=== PATIENT | female | born 1930 | race Caucasian/White ===

== ENCOUNTER → 2016-07-10 | Outpatient (CLI) | payer MEDICARE, OTHER | LOC: MW.CHFP 14:52 | PROVIDERS: ATTEND Physician Assistant | DX: R35.0 Frequency of micturition (principal); N39.0 Urinary tract infection, site not specified | CPT/HCPCS: 81001; 87086; 87088; 87186; G0463 ==

== ENCOUNTER 2017-02-24 09:34 | Emergency (ER) | payer MEDICARE, OTHER ==
[2017-02-24] MEDS ORDERED: Sodium Chloride 0.9% 2.5 ML Syringe FLUSH PRN (09:37)
[2017-02-24] MEDS ORDERED: Sodium Chloride 0.9% 10 ML Syringe FLUSH PRN (09:37)
--- NOTE | 2017-02-24 09:40 | EDM.PDOC ---
ED HPI GENERAL MEDICAL PROBLEM - General Stated Complaint: AMBULANCE Time Seen by Provider: 02/24/17 09:35 - History of Present Illness INITIAL COMMENTS - FREE TEXT/NARRATIVE: HISTORY AND PHYSICAL: History of present illness: Patient is an 87-year-old white female presents with a concern of generalized weakness she lives in assisted living and her complaints on arrival include generalized weakness along with some mild shortness of breath abdominal pain is no reported fever chills nausea vomiting she does have an advanced directive of DNR due to advanced age she is somewhat a poor historian. She denies chest pain on arrival is noted to have oxygen saturation in the high 80s she is not on supplemental oxygen at home Review of systems: As per history of present illness and below otherwise all systems reviewed and negative. Past medical history: As per history of present illness and as reviewed below otherwise noncontributory. Surgical history: As per history of present illness and as reviewed below otherwise noncontributory. Social history: No reported history of drug or alcohol abuse. Family history: As per history of present illness and as reviewed below otherwise noncontributory. Physical exam: HEENT: Atraumatic, normocephalic, pupils reactive, negative for conjunctival pallor or scleral icterus, mucous membranes moist, throat clear, neck supple, nontender, trachea midline. Lungs: Coarse, breath sounds equal bilaterally, chest nontender. Heart: S1S2, regular, negative for clicks, rubs, or JVD. Abdomen: Soft, protuberant with nonlocalized tenderness across her lower abdomen. Negative for masses or hepatosplenomegaly. Negative for costovertebral tenderness. Pelvis: Stable nontender. Genitourinary: Deferred. Rectal: Deferred. Extremities: Atraumatic, negative for cords or calf pain. Neurovascular unremarkable. Neuro: Awake, alert, follows commands moves all extremities limited but grossly nonfocal exam Diagnostics: CBC CMP PT/INR lipase troponin UA urine culture blood culture 2 lactic acid chest x-ray EKG CT abdomen and pelvis influenza screen Therapeutics: IV O2 monitor Impression: #1 generalized weakness #2 hypoxemia #3 abdominal pain #4 DNR Patient received 40 minutes of critical care time exclusive of procedures Definitive disposition and diagnosis as appropriate pending reevaluation and review of above. Abdominal Pain Score (Numeric/FACES): 3 - Related Data Allergies Allergy/AdvReac Type Severity Reaction Status Date / Time No Known Allergies Allergy Verified 02/24/17 09:39 ED ROS GENERAL - Review of Systems Review Of Systems: ROS reveals no pertinent complaints other than HPI. ED EXAM, GENERAL - Physical Exam Exam: See Below (The dictation) Course - Vital Signs Text/Narrative:: Patient CT demonstrates large hiatal hernia large pneumoperitoneum cecal volvulus possible pneumatosis normal saline 1 L was ordered as a bolus second IV line was initiated Flagyl was added to the already ordered Levaquin surgical consult was obtained in the emergency department lengthy discussion with family who is making determinations as to treatment options and likely transfer. Last Recorded V/S: Last Vital Signs Temp 36.1 C 02/24/17 11:05 Pulse 92 02/24/17 11:05 Resp 14 02/24/17 11:05 BP 104/37 L 02/24/17 11:05 Pulse Ox 93 L 02/24/17 11:05 - Orders/Labs/Meds Orders: Active Orders 24 hr Category Date Time Status Cardiac Monitoring [RC] . DIRECTED Care 02/24/17 09:36 Active EKG Documentation Completion [RC] STAT Care 02/24/17 09:36 Active Oxygen Therapy, ED [RC] ASDIRECTED Care 02/24/17 09:36 Active Pulse Oximetry [RC] ASDIRECTED Care 02/24/17 09:36 Active Abdomen Pelvis wo Cont [CT] Stat Exams 02/24/17 09:36 Taken Chest 1V Frontal [CR] Stat Exams 02/24/17 09:36 Taken Chest wo Cont [CT] Routine Exams 02/24/17 10:36 Taken BLOOD GAS ARTERIAL [BG] Stat Lab 02/24/17 09:36 Ordered CULTURE BLOOD [BC] Stat Lab 02/24/17 10:00 Received CULTURE BLOOD [BC] Stat Lab 02/24/17 10:20 Results CULTURE URINE [RM] Stat Lab 02/24/17 09:36 Uncollected INFLUENZA A+B AG SCREEN [RM] Stat Lab 02/24/17 09:37 Uncollected UA W/MICROSCOPIC [URIN] Stat Lab 02/24/17 09:36 Uncollected Levofloxacin/Dextrose 5%-Water [Levaquin in D5W 750 MG/ Med 02/24/17 10:51 Active 150 ML] 750 mg Premix Bag 1 bag IV ONETIME Sodium Chloride 0.9% [Normal Saline] 1,000 ml Med 02/24/17 09:45 Active IV STAT Sodium Chloride 0.9% [Saline Flush] Med 02/24/17 09:37 Active 10 ml FLUSH ASDIRECTED PRN Sodium Chloride 0.9% [Saline Flush] Med 02/24/17 09:37 Active 2.5 ml FLUSH ASDIRECTED PRN metroNIDAZOLE/Normal Saline [Flagyl 500 MG in NS 100 ML Med 02/24/17 11:36 Active ] 500 mg Premix Bag 1 bag IV ONETIME Blood Culture x2 Reflex Set [OM.PC] Stat Oth 02/24/17 09:36 Ordered Saline Lock Insert [OM.PC] Stat Oth 02/24/17 09:36 Ordered Medication Orders Sodium Chloride (Normal Saline) 1,000 mls @ 125 mls/hr IV STAT [facility] Last Admin: 02/24/17 11:15 Dose: 125 mls/hr Levofloxacin/Dextrose 750 mg/ (Premix) 150 mls @ 100 mls/hr IV ONETIME ONE Stop: 02/24/17 12:20 Last Admin: 02/24/17 11:15 Dose: 100 mls/hr Metronidazole 500 mg/ Premix 100 mls @ 100 mls/hr IV ONETIME ONE Stop: 02/24/17 12:35 Sodium Chloride (Saline Flush) 10 ml FLUSH ASDIRECTED PRN PRN Reason: Keep Vein Open Sodium Chloride (Saline Flush) 2.5 ml FLUSH ASDIRECTED PRN PRN Reason: Keep Vein Open Labs: Laboratory Tests 02/24/17 02/24/17 02/24/17 Range/Units 10:00 10:00 10:00 WBC 10.57 (4.0-11.0) K/uL RBC 4.86 (4.30-5.90) M/uL Hgb 15.2 (12.0-16.0) g/dL Hct 44.1 (36.0-46.0) % MCV 90.7 (80.0-98.0) fL MCH 31.3 (27.0-32.0) pg MCHC 34.5 (31.0-37.0) g/dL RDW Std Deviation 45.9 (28.0-62.0) fl RDW Coeff of Yoselin 14 (11.0-15.0) % Plt Count 201 (150-400) K/uL MPV 10.00 (7.40-12.00) fL Neut % (Auto) 84.7 H (48.0-80.0) % Lymph % (Auto) 7.9 L (16.0-40.0) % Worth % (Auto) 7.3 (0.0-15.0) % Eos % (Auto) 0.0 (0.0-7.0) % Baso % (Auto) 0.1 (0.0-1.5) % Neut # (Auto) 9.0 H (1.4-5.7) K/uL Lymph # (Auto) 0.8 (0.6-2.4) K/uL Worth # (Auto) 0.8 (0.0-0.8) K/uL Eos # (Auto) 0.0 (0.0-0.7) K/uL Baso # (Auto) 0.0 (0.0-0.1) K/uL Nucleated RBC % 0.0 /100WBC Nucleated RBCs # 0 K/uL INR 1.06 (0.86-1.11) Lactate (0.20-2.00) mmol/L Sodium 138 (136-146) mmol/L Potassium 5.3 H (3.5-5.1) mmol/L Chloride 106 (98-110) mmol/L Carbon Dioxide 20 L (21-31) mmol/L BUN 67 H (6.0-23.0) mg/dL Creatinine 2.1 H (0.6-1.5) mg/dL Est Cr Clr Drug Dosing TNP Estimated GFR (MDRD) 22.2 ml/min Glucose 156 H (60-110) mg/dL Calcium 11.2 H (8.8-10.8) mg/dL Total Bilirubin 1.7 H (0.1-1.5) mg/dL AST 18 (5-40) IU/L ALT 13 (8-54) IU/L Alkaline Phosphatase 65 (40-150) Troponin I < 0.10 (0.0-0.29) NG/ML B-Natriuretic Peptide (<100) PG/ML Total Protein 7.4 (6.0-8.0) g/dL Albumin 3.5 (3.4-4.8) g/dL Globulin 3.9 H (2.0-3.5) g/dL Albumin/Globulin Ratio 0.9 L (1.3-2.8) Lipase < 9 (7-80) U/L 02/24/17 02/24/17 Range/Units 10:00 10:00 WBC (4.0-11.0) K/uL RBC (4.30-5.90) M/uL Hgb (12.0-16.0) g/dL Hct (36.0-46.0) % MCV (80.0-98.0) fL MCH (27.0-32.0) pg MCHC (31.0-37.0) g/dL RDW Std Deviation (28.0-62.0) fl RDW Coeff of Yoselin (11.0-15.0) % Plt Count (150-400) K/uL MPV (7.40-12.00) fL Neut % (Auto) (48.0-80.0) % Lymph % (Auto) (16.0-40.0) % Worth % (Auto) (0.0-15.0) % Eos % (Auto) (0.0-7.0) % Baso % (Auto) (0.0-1.5) % Neut # (Auto) (1.4-5.7) K/uL Lymph # (Auto) (0.6-2.4) K/uL Worth # (Auto) (0.0-0.8) K/uL Eos # (Auto) (0.0-0.7) K/uL Baso # (Auto) (0.0-0.1) K/uL Nucleated RBC % /100WBC Nucleated RBCs # K/uL INR (0.86-1.11) Lactate 2.1 H (0.20-2.00) mmol/L Sodium (136-146) mmol/L Potassium (3.5-5.1) mmol/L Chloride (98-110) mmol/L Carbon Dioxide (21-31) mmol/L BUN (6.0-23.0) mg/dL Creatinine (0.6-1.5) mg/dL Est Cr Clr Drug Dosing Estimated GFR (MDRD) ml/min Glucose (60-110) mg/dL Calcium (8.8-10.8) mg/dL Total Bilirubin (0.1-1.5) mg/dL AST (5-40) IU/L ALT (8-54) IU/L Alkaline Phosphatase (40-150) Troponin I (0.0-0.29) NG/ML B-Natriuretic Peptide 352 H (<100) PG/ML Total Protein (6.0-8.0) g/dL Albumin (3.4-4.8) g/dL Globulin (2.0-3.5) g/dL Albumin/Globulin Ratio (1.3-2.8) Lipase (7-80) U/L Meds: Medications Generic Name Dose Route Start Last Admin Trade Name Freq PRN Reason Stop Dose Admin Sodium Chloride 1,000 mls @ 125 mls/hr 02/24/17 09:45 02/24/17 11:15 Normal Saline IV 125 mls/hr STAT [facility]ES Administration Levofloxacin/Dextrose 750 mg/ 150 mls @ 100 mls/hr 02/24/17 10:51 02/24/17 11 :15 Premix IV 02/24/17 12:20 100 mls/hr ONETIME ONE Administration Metronidazole 500 mg/ Premix 100 mls @ 100 mls/hr 02/24/17 11:36 IV 02/24/17 12:35 ONETIME ONE Sodium Chloride 10 ml 02/24/17 09:37 Saline Flush FLUSH ASDIRECTED PRN Keep Vein Open Sodium Chloride 2.5 ml 02/24/17 09:37 Saline Flush FLUSH ASDIRECTED PRN Keep Vein Open Departure - Departure Time of Disposition: 12:07 Disposition: DC/Tfer to Acute Hospital 02 Condition: Critical Clinical Impression: Cecal volvulus, Pneumoperitoneum - Discharge Information Referrals: PCP,None [Primary Care Provider] - - My Orders Last 24 Hours: My Active Orders 02/24/17 09:36 Cardiac Monitoring [RC] . DIRECTED EKG Documentation Completion [RC] STAT Oxygen Therapy, ED [RC] ASDIRECTED Pulse Oximetry [RC] ASDIRECTED Abdomen Pelvis wo Cont [CT] Stat Chest 1V Frontal [CR] Stat BLOOD GAS ARTERIAL [BG] Stat CULTURE URINE [RM] Stat UA W/MICROSCOPIC [URIN] Stat Blood Culture x2 Reflex Set [OM.PC] Stat Saline Lock Insert [OM.PC] Stat 02/24/17 09:37 INFLUENZA A+B AG SCREEN [RM] Stat Sodium Chloride 0.9% [Saline Flush] 10 ml FLUSH ASDIRECTED PRN Sodium Chloride 0.9% [Saline Flush] 2.5 ml FLUSH ASDIRECTED PRN 02/24/17 09:45 Sodium Chloride 0.9% [Normal Saline] 1,000 ml IV STAT 02/24/17 10:00 CULTURE BLOOD [BC] Stat 02/24/17 10:20 CULTURE BLOOD [BC] Stat 02/24/17 10:36 Chest wo Cont [CT] Routine 02/24/17 10:51 Levofloxacin/Dextrose 5%-Water [Levaquin in D5W 750 MG/150 ML] 750 mg Premix Bag 1 bag IV ONETIME 02/24/17 11:36 metroNIDAZOLE/Normal Saline [Flagyl 500 MG in NS 100 ML] 500 mg Premix Bag 1 bag IV ONETIME - Assessment/Plan Last 24 Hours: My Active Orders 02/24/17 09:36 Cardiac Monitoring [RC] . DIRECTED EKG Documentation Completion [RC] STAT Oxygen Therapy, ED [RC] ASDIRECTED Pulse Oximetry [RC] ASDIRECTED Abdomen Pelvis wo Cont [CT] Stat Chest 1V Frontal [CR] Stat BLOOD GAS ARTERIAL [BG] Stat CULTURE URINE [RM] Stat UA W/MICROSCOPIC [URIN] Stat Blood Culture x2 Reflex Set [OM.PC] Stat Saline Lock Insert [OM.PC] Stat 02/24/17 09:37 INFLUENZA A+B AG SCREEN [RM] Stat Sodium Chloride 0.9% [Saline Flush] 10 ml FLUSH ASDIRECTED PRN Sodium Chloride 0.9% [Saline Flush] 2.5 ml FLUSH ASDIRECTED PRN 02/24/17 09:45 Sodium Chloride 0.9% [Normal Saline] 1,000 ml IV STAT 02/24/17 10:00 CULTURE BLOOD [BC] Stat 02/24/17 10:20 CULTURE BLOOD [BC] Stat 02/24/17 10:36 Chest wo Cont [CT] Routine 02/24/17 10:51 Levofloxacin/Dextrose 5%-Water [Levaquin in D5W 750 MG/150 ML] 750 mg Premix Bag 1 bag IV ONETIME 02/24/17 11:36 metroNIDAZOLE/Normal Saline [Flagyl 500 MG in NS 100 ML] 500 mg Premix Bag 1 bag IV ONETIME
[2017-02-24] MEDS ORDERED: Sodium Chloride 0.9% 1,000 ML IV SCH (09:45)
[2017-02-24 10:37] LABS: CHLORIDE,CL 106 mmol/L (98-110); SODIUM,NA 138 mmol/L (136-146)
[2017-02-24] MEDS ORDERED: Levofloxacin/Dextrose 5%-Water 750 MG in Premix Bag 1 BAG IV ONE (10:51)
[2017-02-24] MEDS ORDERED: metroNIDAZOLE/Normal Saline 500 MG in Premix Bag 1 BAG IV ONE (11:36)
--- NOTE | 2017-02-24 22:27 | CONS ---
DATE OF CONSULTATION: 02/24/2017 DATE OF : 1930 PRIMARY CARE PHYSICIAN: None PCP This is consult from ER Dr. Zhu. CONCERNING QUESTION: Abdominal pain. HISTORY OF PRESENT ILLNESS: The patient is an 87-year-old lady complaining of 48-hour history of acute onset of abdominal pain, nausea, vomiting, and did not get better at home, seek help in the emergency room today. Workup included CAT scan shows a large amount of pneumoperitoneum and large hiatal hernia with entire stomach in the left chest and cecal volvulus with mesenteric stranding. Surgery was then consulted. Currently, the patient denied any pain and also when transferred between bed, the patient also denied any pain. PAST MEDICAL HISTORY: Significant for significant heart disease with cardiac bypass surgery in the past, an MRI 6 years ago, and the patient is taking baby aspirin. ALLERGIES: Please refer to nursing for details. MEDICATIONS: Please refer to nursing for details. PAST SURGICAL HISTORY: Normal vaginal delivery x2, coronary artery bypass graft surgery 6 years ago. PHYSICAL EXAMINATION: GENERAL: A very ill-appearance lady, but smiled to the doctor, and alert and awake in no acute distress. HEENT: Normocephalic, atraumatic. LUNGS: Clear to auscultation. HEART: Regular rate and rhythm. ABDOMEN: Distended, tympanic, nontender, and decreased bowel sounds. IMPRESSION: The patient has a large hiatal hernia with the stomach in the chest and cecal volvulus, possible perforated, with significant cardiac comorbidity. The patient would better surface benefit to transfer to a [facility], where they have Cardiothoracic Surgeon available in the event of any complication or if the hiatal hernia in the chest cannot be reduced, the patient may also need the help with the Cardiothoracic Surgeon to reduce the stomach and the patient's family asked a lot of significant question and all questions answered and the patient's family concurs with management, and the patient is on the way transfer to a [facility] on emergent basis. Plan also has been discussed with Dr. Zhu, the ER provider, and proceed as planned. As always, thank you for the kind referral. ANYA / ROB /[id number]
--- NOTE | 2017-02-26 19:25 | CR ---
EXAM DATE: 02/24/17 PATIENT'S AGE: 87 Patient: ZEENAT MCFADDEN Facility: [place], [place] Site . Site : 1930 Study: XRay Chest [id number]/31/[id number] 10:37:35 AM Ordering Physician: Doctor Rosario Final Report: Indication: Shortness of breath. Comparison: None. Findings: The bones are diffusely demineralized and there are changes of a median sternotomy. Air-filled dilated loops of colon/stomach are noted in the chest with compressive atelectasis of both lower lungs. Probable moderate-sized left pleural effusion. The pulmonary vasculature and heart are silhouetted out by the bowel process in the chest. Impression: Extremely large hiatus hernia or marked elevation of hemidiaphragms or, possible diaphragmatic hernia. Comparison with previous exams would be helpful in evaluating the acute nature of today`s findings. Consider followup PA and lateral chest. Dictated by Olivia Johnson MD @ Feb 24 2017 10:39AM (Electronic Signature) Report Signed by Proxy. [facility]
--- NOTE | 2017-02-26 19:27 | CT ---
EXAM DATE: 02/24/17 PATIENT'S AGE: 87 Patient: ZEENAT MCFADDEN Facility: [place], [place] Site . Site : 1930 Study: CT Abdomen/Pelvis [id number]/31/[id number] 11:03:59 AM Ordering Physician: Doctor Rosario Final Report: Indication: Abdominal pain Technique: Noncontrast CT abdomen and pelvis with coronal side reformatted images obtained Comparison: No comparison studies are available. Findings: Large hiatal hernia with the stomach in the left lower chest. Large amount of pneumoperitoneum. There is a cecal volvulus with the cecum fluid-filled and mildly distended located in the mid and left abdomen. Possible pneumatosis within the cecal wall. Cecum is twisted there is twisted leg mesenteric swirling and stranding seen in the right lower quadrant. On images 76 through 98. Small amount of free fluid in the abdomen and pelvis. There is extensive sigmoid diverticulosis. Urinary bladder is unremarkable the fact containing inguinal hernias with normal fluid in the right inguinal canal. Dense atherosclerotic calcification of the abdominal aorta which is ectatic measuring up to 2.7 cm. Liver pancreas appears unremarkable. Large right renal cyst. No hydronephrosis kidneys are otherwise unremarkable. Impression: 1. Cecal volvulus with mesenteric stranding and fluid. Possible pneumatosis within the cecal wall. There is a large amount of pneumoperitoneum . Results called to the ER physician on 02/24/2017 at 11.40am. Please note that all CT scans at this facility use dose modulation, iterative reconstruction, and/or weight-based dosing when appropriate to reduce radiation dose to as low as reasonably achievable. Dictated by Rose Castillo MD @ Feb 24 2017 11:13AM (Electronic Signature) Report Signed by Proxy. [facility]
--- NOTE | 2017-02-26 19:28 | CT ---
EXAM DATE: 02/24/17 PATIENT'S AGE: 87 Patient: ZEENAT MCFADDEN Facility: [place], [place] Site . Site : 1930 Study: CT Chest [id number]/31/2017 11:04:42 AM Ordering Physician: Marko Randall Final Report: Indication: Shortness of breath abdominal pain. Technique: Noncontrast chest CT scan with coronal and sagittal reformat images obtained Comparison: No comparison studies are available. Findings: Median sternotomy. Dense coronary artery calcification. Heart size normal. Large hiatal hernia with the entire stomach in the left chest. No central endobronchial lesion. Left upper lobe, left lower lobe and right lower lobe atelectasis/consolidation. Large amount of pneumoperitoneum. Impression: 1. A large hiatal hernia with the entire stomach in the left chest . Right lower lobe/left upper and left lower lobe atelectasis/consolidation. 2. Large amount of pneumoperitoneum. Please note that all CT scans at this facility use dose modulation, iterative reconstruction, and/or weight-based dosing when appropriate to reduce radiation dose to as low as reasonably achievable. Dictated by Rose Castillo MD @ Feb 24 2017 11:40AM (Electronic Signature) Report Signed by Proxy. [facility]
== END 2017-02-24 12:30 ==
LOC: MW.ED 09:34
DX: K56.2 Volvulus (principal); K66.8 Other specified disorders of peritoneum; R09.02 Hypoxemia; Z66 Do not resuscitate
CPT/HCPCS: 36415; 71010; 71250; 74176; 80053; 83605; 83690; 83880; 84484; 85025; 85610; 87040; 93005; 96365; 96368; 99285; J1956; J7040; 99284

== ENCOUNTER 2017-05-12 10:17 | Inpatient (IN) | payer MEDICARE, OTHER ==
[2017-05-12] MEDS ORDERED: Sodium Chloride 0.9% 2.5 ML Syringe FLUSH PRN (10:24)
[2017-05-12] MEDS ORDERED: Sodium Chloride 0.9% 10 ML Syringe FLUSH PRN (10:24)
--- NOTE | 2017-05-12 10:27 | EDM.PDOC ---
ED HPI GENERAL MEDICAL PROBLEM - General Chief Complaint: General Stated Complaint: FALL Time Seen by Provider: 05/12/17 10:27 Source of Information: Reports: Patient History Limitations: Reports: No Limitations - History of Present Illness INITIAL COMMENTS - FREE TEXT/NARRATIVE: HISTORY AND PHYSICAL: []87-year-old female per EMS after fall, fall was not witnessed History of Present Illness: []Patient is at [facility]. She was seen a week ago with previous fall. Patient was here one month ago with compression fractures from fall. She is pleasantly confused not remembering what happened is that she must of tripped. family at bedside ([id number]. Review of Systems: As per history of present illness and below otherwise all systems reviewed and negative. Past medical history: As per history of present illness and as reviewed below otherwise noncontributory. Surgical history: As per history of present illness and as reviewed below otherwise noncontributory. Social history: No reported history of drug or alcohol abuse. Family history: As per history of present illness and as reviewed below otherwise noncontributory. Physical exam: Alert and somewhat confused/ dementia. Bruising in various stages to her face or hands arms. She does answer questions when asked. HEENT: Atraumatic, normocehpalic, pupils reactive, negative for conjunctival pallor or scleral icterus, mucous membranes moist, throat clear, neck supple, nontender, trachea midline. laceration to bridge of her nose.laceration to right knuckles with small steri-strips . Lungs: Clear to auscultation, breath sounds equal bilaterally, chest non tender. Heart: S1S2, regular, negative for clicks, rubs, or JVD. Abdomen: Soft, nondistended, nontender. Negative for masses or hepatossplenmegaly. Negative for costovertebral tenderness. Pelvis: Stable mild tenderness with examination. Genitourinary: Deferred. Rectal: Deferred Extremities: Atraumatic, negative for cords or calf pain. Neurovascular unremarkable. Neuro: Awake, alert, oriented. Cranial nerves II through XII unremarkable. Cerebellum unremarkable. Motor and sensory unremarkable throughout. Exam nonfocal. Discussed with her son and [id number] the several fractures patient has received from her fall. With her head injury and fractures would like to admit her into the hospital for supportive cares. They're agreeable to this. She is a code level III have discussed this at some length with the son and daughter-in- law. Discussed case with Dr. Cervantes who is in agreement for patient admission Diagnostics: [CBC CMP troponin AUA head CT cervical spine CT thoracic soft spine CT] Therapeutics: []Morphine IV Ativan Impression: [Head injury Multiple fractures] Plan: []Admit to the hospital as inpatient Definitive disposition and diagnosis as appropriate pending reevaluation and review of above. Onset: Today, Sudden Duration: Minutes: Location: Reports: Head, Face, Back Quality: Reports: Throbbing Severity: Moderate Improves with: Reports: None Worsens with: Reports: None Associated Symptoms: Reports: Confusion back Pain Score (Numeric/FACES): 7 - Related Data Allergies Allergy/AdvReac Type Severity Reaction Status Date / Time No Known Allergies Allergy Verified 05/12/17 10:27 Home Meds: Home Meds Acetaminophen [Tylenol] 2 tab PO TID 05/12/17 [History] Acetaminophen/oxyCODONE [Percocet 325-5 MG] 1 tab PO Q4HR PRN 05/12/17 [History] Alum Hydrox/Mag Hydrox/Simeth [Maalox Advanced] 1 - 2 tbsp PO QID PRN 05/12/17 [ History] Bisacodyl [Dulcolax] 1 supp RECTAL DAILY PRN 05/12/17 [History] Calcitonin ([place]) [Miacalcin Nasal [place]] 1 spray NASBOTH DAILY 05/12/17 [ History] Donepezil [Aricept] 10 mg PO BEDTIME 05/12/17 [History] Guiatussin 1 tsp PO Q4H PRN 05/12/17 [History] Levothyroxine [Synthroid] 50 mcg PO DAILY 05/12/17 [History] Loperamide [Imodium] 2 cap PO PRN 05/12/17 [History] Meloxicam 7.5 mg PO DAILY 05/12/17 [History] Metoprolol Tartrate 25 mg PO BID 05/12/17 [History] Multivitamin [Multivitamins] 1 cap PO DAILY 05/12/17 [History] PARoxetine [Paxil] 20 mg PO DAILY 05/12/17 [History] Pantoprazole [ProTONIX] 40 mg PO DAILY 05/12/17 [History] Polyvinyl Alcohol [Artificial Tears] 1 drop EYEBOTH QID 05/12/17 [History] Quinapril [Accupril] 40 mg PO DAILY 05/12/17 [History] atorvaSTATin [Lipitor] 10 mg PO DAILY 05/12/17 [History] levETIRAcetam [Keppra] 1,000 mg PO DAILY 05/12/17 [History] Past Medical History Cardiovascular History: Reports: CAD, High Cholesterol, Hypertension Neurological History: Reports: Neuropathy, Peripheral Endocrine/Metabolic History: Reports: Hypothyroidism Social & Family History - Tobacco Use Smoking Status *Q: Unknown Ever Smoked ED ROS GENERAL - Review of Systems Review Of Systems: ROS reveals no pertinent complaints other than HPI. ED EXAM, GENERAL - Physical Exam Exam: See Below ED GENERAL MEDICAL PROCEDURES - Laceration/Wound Repair Middle Nose Lac/wound length in cm: 1.5 Appearance: Subcutaneous Distal NVT: Neuro & Vascular Intact, No Tendon Injury Skin Prep: Chlorhexidine (Hibiciens), Saline Exploration/Debridement/Repair: Wound Explored, Explored to Base Closed with: Steri-Strips Drain Placement: No Sterile Dressing Applied: None Tetanus Status Addressed: No Complications: No Right Anterior Arm Lac/wound length in cm: 5 Appearance: Superficial Distal NVT: Neuro & Vascular Intact, No Tendon Injury Skin Prep: Saline Exploration/Debridement/Repair: Wound Explored, In a Bloodless Field, Explored to Base Closed with: Steri-Strips Right Hand Lac/wound length in cm: 2 Appearance: Superficial Distal NVT: Neuro & Vascular Intact, No Tendon Injury Skin Prep: Saline Exploration/Debridement/Repair: Wound Explored, In a Bloodless Field Closed with: Steri-Strips Course - Vital Signs Last Recorded V/S: Last Vital Signs Temp 35.8 C 05/12/17 10:21 Pulse 54 L 05/12/17 13:00 Resp 18 05/12/17 13:00 BP 107/76 05/12/17 13:00 Pulse Ox 92 L 05/12/17 13:00 - Orders/Labs/Meds Orders: Active Orders 24 hr Category Date Time Status Patient Status [ADT] Stat ADT 05/12/17 13:31 Ordered Abdomen Pelvis wo Cont [CT] Stat Exams 05/12/17 10:38 Taken Cervical Spine wo Cont [CT] Stat Exams 05/12/17 10:24 Taken Head wo Cont [CT] Stat Exams 05/12/17 10:24 Taken Max Facial Sinus wo Cont [CT] Stat Exams 05/12/17 10:46 Taken Thoracic Spine wo Cont [CT] Stat Exams 05/12/17 10:25 Taken Sodium Chloride 0.9% [Saline Flush] Med 05/12/17 10:24 Active 10 ml FLUSH ASDIRECTED PRN Sodium Chloride 0.9% [Saline Flush] Med 05/12/17 10:24 Active 2.5 ml FLUSH ASDIRECTED PRN Saline Lock Insert [OM.PC] Stat Oth 05/12/17 10:24 Ordered Medication Orders Sodium Chloride (Saline Flush) 10 ml FLUSH ASDIRECTED PRN PRN Reason: Keep Vein Open Sodium Chloride (Saline Flush) 2.5 ml FLUSH ASDIRECTED PRN PRN Reason: Keep Vein Open Labs: Laboratory Tests 05/12/17 05/12/17 05/12/17 Range/Units 10:46 10:46 11:35 WBC 8.03 (4.0-11.0) K/uL RBC 4.14 L (4.30-5.90) M/uL Hgb 11.7 L (12.0-16.0) g/dL Hct 35.6 L (36.0-46.0) % MCV 86.0 (80.0-98.0) fL MCH 28.3 (27.0-32.0) pg MCHC 32.9 (31.0-37.0) g/dL RDW Std Deviation 54.9 (28.0-62.0) fl RDW Coeff of Yoselin 18 H (11.0-15.0) % Plt Count 252 (150-400) K/uL MPV 9.10 (7.40-12.00) fL Neut % (Auto) 75.9 (48.0-80.0) % Lymph % (Auto) 15.8 L (16.0-40.0) % [place] % (Auto) 8.1 (0.0-15.0) % Eos % (Auto) 0.1 (0.0-7.0) % Baso % (Auto) 0.1 (0.0-1.5) % Neut # (Auto) 6.1 H (1.4-5.7) K/uL Lymph # (Auto) 1.3 (0.6-2.4) K/uL [place] # (Auto) 0.7 (0.0-0.8) K/uL Eos # (Auto) 0.0 (0.0-0.7) K/uL Baso # (Auto) 0.0 (0.0-0.1) K/uL Nucleated RBC % 0.0 /100WBC Nucleated RBCs # 0 K/uL Sodium 141 (136-145) mmol/L Potassium 3.2 L (3.5-5.1) mmol/L Chloride 106 (98-107) mmol/L Carbon Dioxide 24.9 (21.0-32.0) mmol/L BUN 12 (7.0-18.0) mg/dL Creatinine 0.9 (0.6-1.0) mg/dL Est Cr Clr Drug Dosing 39.67 mL/min Estimated GFR (MDRD) 59.0 ml/min Glucose 110 H (74-106) mg/dL Calcium 8.4 L (8.5-10.1) mg/dL Total Bilirubin 0.8 (0.2-1.0) mg/dL AST 28 (15-37) IU/L ALT 15 (14-63) IU/L Alkaline Phosphatase 151 H (46-116) U/L Troponin I 0.097 H* (0.000-0.056) ng/mL Total Protein 6.3 L (6.4-8.2) g/dL Albumin 2.6 L (3.4-5.0) g/dL Globulin 3.7 H (2.0-3.5) g/dL Albumin/Globulin Ratio 0.7 L (1.3-2.8) Urine Color YELLOW Urine Appearance CLEAR Urine pH 5.5 (5.0-8.0) Ur Specific [place] 1.025 (1.001-1.035) Urine Protein TRACE (NEGATIVE) mg/dL Urine Glucose (UA) NEGATIVE (NEGATIVE) mg/dL Urine Ketones TRACE H (NEGATIVE) mg/dL Urine Occult Blood NEGATIVE (NEGATIVE) Urine Nitrite NEGATIVE (NEGATIVE) Urine Bilirubin NEGATIVE (NEGATIVE) Urine Urobilinogen 0.2 (<2.0) EU/dL Ur Leukocyte Esterase NEGATIVE (NEGATIVE) Urine RBC 0-2 (0-2/HPF) Urine WBC 2-5 (0-5/HPF) Ur Epithelial Cells FEW (NONE-FEW) Urine Bacteria 1+ H (NEGATIVE) Meds: Medications Generic Name Dose Route Start Last Admin Trade Name Mirna PRN Reason Stop Dose Admin Sodium Chloride 10 ml 05/12/17 10:24 Saline Flush FLUSH ASDIRECTED PRN Keep Vein Open Sodium Chloride 2.5 ml 05/12/17 10:24 Saline Flush FLUSH ASDIRECTED PRN Keep Vein Open Discontinued Medications Generic Name Dose Route Start Last Admin Trade Name Mirna PRN Reason Stop Dose Admin Ceftriaxone Sodium/Dextrose 1 50 mls @ 100 mls/hr 05/12/17 11:58 05/12/17 12: 25 gm/ Premix IV 05/12/17 12:27 100 mls/hr ONETIME ONE Administration Lidocaine HCl 20 ml 05/12/17 12:41 05/12/17 12:58 Xylocaine 1% INJECT 05/12/17 12:42 20 ml ONETIME ONE Administration Lidocaine/Tetracaine 1 ml 05/12/17 11:56 05/12/17 12:25 Let Soln TOP 05/12/17 11:57 1 ml ONETIME ONE Administration Lorazepam 0.5 mg 05/12/17 12:16 05/12/17 12:24 Ativan IVPUSH 05/12/17 12:17 0.5 mg ONETIME ONE Administration Morphine Sulfate 1 mg 05/12/17 10:51 05/12/17 11:24 Morphine IM 05/12/17 10:52 1 mg ONETIME ONE Administration Morphine Sulfate 1 mg 05/12/17 12:41 05/12/17 12:58 Morphine IVPUSH 05/12/17 12:42 1 mg ONETIME ONE Administration Departure - Departure Time of Disposition: 13:37 Disposition: Admitted As Inpatient 64 Condition: Good Clinical Impression: Fractures Head injury due to trauma Qualifiers: Encounter type: initial encounter Qualified Code(s): S09.90XA - Unspecified injury of head, initial encounter - Discharge Information Referrals: Reggie Torres MD [Primary Care Provider] - Forms: ED Department Discharge - My Orders Last 24 Hours: My Active Orders 05/12/17 10:24 Cervical Spine wo Cont [CT] Stat Head wo Cont [CT] Stat Sodium Chloride 0.9% [Saline Flush] 10 ml FLUSH ASDIRECTED PRN Sodium Chloride 0.9% [Saline Flush] 2.5 ml FLUSH ASDIRECTED PRN Saline Lock Insert [OM.PC] Stat 05/12/17 10:25 Thoracic Spine wo Cont [CT] Stat 05/12/17 10:38 Abdomen Pelvis wo Cont [CT] Stat 05/12/17 10:46 Max Facial Sinus wo Cont [CT] Stat 05/12/17 13:31 Patient Status [ADT] Stat - Assessment/Plan Last 24 Hours: My Active Orders 05/12/17 10:24 Cervical Spine wo Cont [CT] Stat Head wo Cont [CT] Stat Sodium Chloride 0.9% [Saline Flush] 10 ml FLUSH ASDIRECTED PRN Sodium Chloride 0.9% [Saline Flush] 2.5 ml FLUSH ASDIRECTED PRN Saline Lock Insert [OM.PC] Stat 05/12/17 10:25 Thoracic Spine wo Cont [CT] Stat 05/12/17 10:38 Abdomen Pelvis wo Cont [CT] Stat 05/12/17 10:46 Max Facial Sinus wo Cont [CT] Stat 05/12/17 13:31 Patient Status [ADT] Stat
[2017-05-12] MEDS ORDERED: Morphine 2 MG/ML Syringe IM ONE (10:51)
[2017-05-12] MEDS ORDERED: Lidocaine/EPINEPHrine/Tetracaine Soln 1 ML TOP ONE (11:56)
[2017-05-12] MEDS ORDERED: cefTRIAXone 1 GM in Premix Bag 1 BAG IV ONE (11:58)
[2017-05-12] MEDS ORDERED: LORazepam 2 MG/ML SDV IVPUSH ONE (12:16)
[2017-05-12] MEDS ORDERED: Lidocaine 1% 20 ML MDV INJECT ONE (12:41)
[2017-05-12] MEDS ORDERED: Morphine 2 MG/ML Syringe IVPUSH ONE (12:41)
--- NOTE | 2017-05-12 14:34 | PCM.HP ---
H&P History of Present Illness - General Date of Service: 05/12/17 Admit Problem/Dx: Fall Source of Information: EMS Notes Reviewed, Family, Provider History Limitations: Reports: No Limitations - History of Present Illness Initial Comments - Free Text/Narative: 87-year-old female patient at [facility] presenting to the emergency department via EMS after unwitnessed fall. Of note, patient was seen 1 week ago in emergency department for a fall as well as one month ago with a fall with compression fractures. As per family they state that [facility] called them and stated that patient had fallen and needed to be seen in the emergency room. Family requested she be taken by ambulance. They state that they were called around 9am of this fall, however they're unsure how long she was down for. Reported that she was found in the morning in her bed with abrasions and lacerations. They believe that she may have fell in the bathroom and then was able to get herself back to bed. Family is unsure of how long she was down in the bathroom. As above she has had multiple falls in the past month. Patient has a history of triple bypass, dementia, and seizures. Family states that she was doing well up until this last New Year's Ruthie. When questioned they report that she is DNR/DNI and would not like any cardiac intervention if this was secondary to a cardiac event. Did let them know that her troponin was elevated. Patient is pleasantly confused and does not remember the event. Emergency department: CBC unremarkable, CMP shows hypokalemia. Troponin elevated at 0.097, UA suggestive of UTI, vital signs stable, left hip x-ray unremarkable, CT of head unremarkable for acute intracranial abnormalities, there is a nondisplaced nasal bone fracture, facial CT shows a minimally depressed fracture involving the tip of the nasal bones, cervical spine shows no acute cervical spine injury but chronic changes of cervical spondylosis, CT abdomen and pelvis show 50% compression of T12 and a nondisplaced fracture of the sacrum at S2, there is also mild compression of the superior endplate of L2. In the emergency department wounds were dressed and she was given a total of 2 mg of morphine for pain as well as 0.5 mg IV Ativan. She was also started on Rocephin for suspected UTI Patient admitted for acute fall with multiple fractures and suspected UTI. back Pain Score (Numeric/FACES): 7 - Related Data Allergies/Adverse Reactions: Allergies Allergy/AdvReac Type Severity Reaction Status Date / Time No Known Allergies Allergy Verified 05/12/17 10:27 Home Medications: Home Meds Acetaminophen [Tylenol] 2 tab PO TID 05/12/17 [History] Acetaminophen/oxyCODONE [Percocet 325-5 MG] 1 tab PO Q4HR PRN 05/12/17 [History] Alum Hydrox/Mag Hydrox/Simeth [Maalox Advanced] 1 - 2 tbsp PO QID PRN 05/12/17 [ History] Bisacodyl [Dulcolax] 1 supp RECTAL DAILY PRN 05/12/17 [History] Calcitonin ([place]) [Miacalcin Nasal [place]] 1 spray NASBOTH DAILY 05/12/17 [ History] Donepezil [Aricept] 10 mg PO BEDTIME 05/12/17 [History] Guiatussin 1 tsp PO Q4H PRN 05/12/17 [History] Levothyroxine [Synthroid] 50 mcg PO DAILY 05/12/17 [History] Loperamide [Imodium] 2 cap PO PRN 05/12/17 [History] Meloxicam 7.5 mg PO DAILY 05/12/17 [History] Metoprolol Tartrate 25 mg PO BID 05/12/17 [History] Multivitamin [Multivitamins] 1 cap PO DAILY 05/12/17 [History] PARoxetine [Paxil] 20 mg PO DAILY 05/12/17 [History] Pantoprazole [ProTONIX] 40 mg PO DAILY 05/12/17 [History] Polyvinyl Alcohol [Artificial Tears] 1 drop EYEBOTH QID 05/12/17 [History] Quinapril [Accupril] 40 mg PO DAILY 05/12/17 [History] atorvaSTATin [Lipitor] 10 mg PO DAILY 05/12/17 [History] levETIRAcetam [Keppra] 1,000 mg PO DAILY 05/12/17 [History] Past Medical History Cardiovascular History: Reports: CAD, High Cholesterol, Hypertension Neurological History: Reports: Neuropathy, Peripheral Endocrine/Metabolic History: Reports: Hypothyroidism - Past Surgical History GI Surgical History: Reports: Colon Musculoskeletal Surgical History: Reports: Other (See Below) Other Musculoskeletal Surgeries/Procedures:: compression fx to back from a fall a couple of weeks ago Social & Family History - Family History Family Medical History: Noncontributory - Tobacco Use Smoking Status *Q: Unknown Ever Smoked Second Hand Smoke Exposure: No - Caffeine Use Caffeine Use: Reports: Coffee, Soda - Recreational Drug Use Recreational Drug Use: No H&P Review of Systems - Review of Systems: Review Of Systems: Unable To Obtain Free Text/Narrative: Patient pleasantly demented but not answering questions appropriately. Exam - Exam Exam: See Below - Vital Signs Vital Signs: Last Vital Signs Temp 96.4 F 05/12/17 10:21 Pulse 54 L 05/12/17 13:00 Resp 18 05/12/17 13:00 BP 107/76 05/12/17 13:00 Pulse Ox 92 L 05/12/17 13:00 Weight: 65.771 kg - Exam Quality Assessment: DVT Prophylaxis General: Alert, Cooperative HEENT: Conjunctiva Clear, EACs Clear, EOMI, Hearing Intact, Mucosa Moist & [place] , Nares Patent, Normal Nasal Septum, Posterior Pharynx Clear, PERRLA Neck: Supple, Trachea Midline, 2 Lungs: Clear to Auscultation, Normal Respiratory Effort Cardiovascular: Regular Rate, Regular Rhythm GI/Abdominal Exam: Normal Bowel Sounds, Soft, Non-Tender, No Organomegaly, No Distention (Female) Exam: Deferred Rectal (Female) Exam: Deferred Back Exam: Normal Inspection Extremities: Normal Inspection, No Pedal Edema, Normal Capillary Refill, Arm Pain Peripheral Pulses: 2+: Radial (L), Radial (R), Posterior Tibial (L), Posterior Tibial (R), Dorsalis Pedis (L), Dorsalis Pedis (R) Skin: Warm, Dry, Wound Neurological: Cranial Nerves Intact Neuro Extensive - Mental Status: Alert Neuro Extensive - Motor, Sensory, Reflexes: CN II-XII Intact Psychiatric: Alert - Patient Data Result Diagrams: 05/12/17 10:46 05/12/17 10:46 *Q Meaningful Use (ADM) - VTE *Q VTE Criteria *Q: - Stroke *Q Stroke Criteria *Q: - AMI *Q AMI Criteria *Q: - Problem List (1) Multiple fractures SNOMED Code(s): 963756813 ICD Code: T07.XXXA - UNSPECIFIED MULTIPLE INJURIES, INITIAL ENCOUNTER Status: Acute Priority: High Current Visit: Yes (2) UTI (urinary tract infection) SNOMED Code(s): 77458184 ICD Code: N39.0 - URINARY TRACT INFECTION, SITE NOT SPECIFIED Status: Acute Priority: High Current Visit: Yes Qualifiers: Urinary tract infection type: acute cystitis Hematuria presence: without hematuria Qualified Code(s): N30.00 - Acute cystitis without hematuria (3) Dementia SNOMED Code(s): 28427969 ICD Code: F03.90 - UNSPECIFIED DEMENTIA WITHOUT BEHAVIORAL DISTURBANCE Status: Chronic Priority: Medium Current Visit: Yes Qualifiers: Dementia type: unspecified type Dementia behavioral disturbance: without behavioral disturbance Qualified Code(s): F03.90 - Unspecified dementia without behavioral disturbance (4) S/P CABG x 3 SNOMED Code(s): 017155116, 864901538 ICD Code: Z95.1 - PRESENCE OF AORTOCORONARY BYPASS GRAFT Status: Chronic Priority: Medium Current Visit: Yes Problem List Initiated/Reviewed/Updated: Yes Orders Last 24hrs: Medication Orders Sodium Chloride (Saline Flush) 10 ml FLUSH ASDIRECTED PRN PRN Reason: Keep Vein Open Sodium Chloride (Saline Flush) 2.5 ml FLUSH ASDIRECTED PRN PRN Reason: Keep Vein Open Assessment/Plan Comment:: 87-year-old admitted fall with multiple fractures and suspected UTI with past medical history of dementia, CABG 3, CAD. Multiple fractures: Patient has a nondisplaced nasal bone fracture as well as evidence of compression fractures of T12, L2, and S2. RR nonoperable and nondisplaced. Will use IV morphine for pain control and transition oral as tolerated. Elevated troponin: Troponin was elevated which may be secondary to trauma however patient does have a significant cardiac history. I have discussed this with family and they report that they would not like any interventions even this was cardiac in origin. Will trend troponins and place on telemetry. Suspected UTI: We'll treat with Rocephin and weight for culture results to narrow antibiotic coverage. VTE: SCD, no pharm secondary to risk of fall. Dispo:3-4 days Patient will need placement most likely in [place] after recovery.
[2017-05-12] MEDS ORDERED: Ondansetron 4 MG/2 ML SDV IVPUSH PRN (14:55)
[2017-05-12] MEDS ORDERED: Ondansetron 4 MG Tab.DIS PO PRN (14:55)
[2017-05-12] MEDS ORDERED: Morphine 2 MG/ML Syringe IVPUSH PRN (14:55)
[2017-05-12] MEDS ORDERED: Potassium Chloride 20 MEQ Tab.ER PO ONE (15:01)
[2017-05-12] MEDS ORDERED: Magnesium Sulfate/Water 4 GM in Premix Bag 1 BAG IV STA (23:54)
[2017-05-13 06:28] LABS: CHLORIDE,CL 106 mmol/L (98-107); SODIUM,NA 139 mmol/L (136-145)
[2017-05-13] MEDS: Acetaminophen/HYDROcodone 325-5 MG Tab PO PRN (11:35)
[2017-05-13] MEDS: cefTRIAXone 1 GM in Premix Bag 1 BAG IV SCH (11:37)
--- NOTE | 2017-05-13 12:50 | CR ---
EXAMINATION: Portable chest radiograph. HISTORY: Hypoxia. Comparison: 02/24/2017 FINDINGS: The trachea is midline. Heart is normal in size. Median sternotomy wires are noted. There is a large hiatal hernia comparable to previous imaging. No free air under the diaphragm noted. Mild chronic int erstitial prominence. No definite pleural effusion. Osseous structures appear osteopenic. IMPRESSION: No definite acute cardiopulmonary process.
[2017-05-13] MEDS: levETIRAcetam 500 MG Tab PO SCH (14:28)
[2017-05-13] MEDS: Levothyroxine 50 MCG Tab PO SCH (14:29)
[2017-05-13] MEDS: atorvaSTATin 10 MG Tab PO SCH (14:29)
--- NOTE | 2017-05-13 15:42 | PCM.PN ---
- General Info Date of Service: 05/13/17 Subjective Update: 87-year-old female was stable when I initially assessed her prior to rounds. However during rounds a rapid response was called, and when entering the patient 's roommate was evident that the patient was having a tonic-clonic seizure. The seizure did subside, patient was DNR/DNI however no extreme intervention was required. Patient seizure occurred while she was sitting on the couch and was being moved by nursing staff to the bed. An EKG did not show any acute ischemic event, troponins have already been elevated secondary to ischemic versus cardiac demand etiology. - Patient Data Vitals - Most Recent: Last Vital Signs Temp 36.9 C 05/13/17 12:00 Pulse 105 H 05/13/17 12:00 Resp 20 05/13/17 12:00 BP 117/55 L 05/13/17 14:29 Pulse Ox 98 05/13/17 12:00 Weight - Most Recent: 65.771 kg I&O - Last 24 Hours: Intake & Output 05/13/17 05/13/17 05/13/17 06:59 14:59 22:59 Intake Total 300 Output Total 350 Balance -50 Lab Results Last 24 Hours: Laboratory Results - last 24 hr 05/12/17 05/12/17 05/12/17 Range/Units 17:24 22:56 22:56 WBC (4.0-11.0) K/uL RBC (4.30-5.90) M/uL Hgb (12.0-16.0) g/dL Hct (36.0-46.0) % MCV (80.0-98.0) fL MCH (27.0-32.0) pg MCHC (31.0-37.0) g/dL RDW Std Deviation (28.0-62.0) fl RDW Coeff of Yoselin (11.0-15.0) % Plt Count (150-400) K/uL MPV (7.40-12.00) fL Neut % (Auto) (48.0-80.0) % Lymph % (Auto) (16.0-40.0) % [place] % (Auto) (0.0-15.0) % Eos % (Auto) (0.0-7.0) % Baso % (Auto) (0.0-1.5) % Neut # (Auto) (1.4-5.7) K/uL Lymph # (Auto) (0.6-2.4) K/uL [place] # (Auto) (0.0-0.8) K/uL Eos # (Auto) (0.0-0.7) K/uL Baso # (Auto) (0.0-0.1) K/uL Nucleated RBC % /100WBC Nucleated RBCs # K/uL Sodium (136-145) mmol/L Potassium (3.5-5.1) mmol/L Chloride (98-107) mmol/L Carbon Dioxide (21.0-32.0) mmol/L BUN (7.0-18.0) mg/dL Creatinine (0.6-1.0) mg/dL Est Cr Clr Drug Dosing mL/min Estimated GFR (MDRD) ml/min Glucose (74-106) mg/dL Calcium (8.5-10.1) mg/dL Phosphorus (2.6-4.7) mg/dL Magnesium 0.7 L (1.5-2.0) mg/dL Total Bilirubin (0.2-1.0) mg/dL AST (15-37) IU/L ALT (14-63) IU/L Alkaline Phosphatase (46-116) U/L Troponin I 0.121 H* 0.104 H* (0.000-0.056) ng/mL Total Protein (6.4-8.2) g/dL Albumin (3.4-5.0) g/dL Globulin (2.0-3.5) g/dL Albumin/Globulin Ratio (1.3-2.8) 05/13/17 05/13/17 05/13/17 Range/Units 05:04 05:04 06:45 WBC 5.22 (4.0-11.0) K/uL RBC 3.76 L (4.30-5.90) M/uL Hgb 10.7 L (12.0-16.0) g/dL Hct 31.7 L (36.0-46.0) % MCV 84.3 (80.0-98.0) fL MCH 28.5 (27.0-32.0) pg MCHC 33.8 (31.0-37.0) g/dL RDW Std Deviation 54.1 (28.0-62.0) fl RDW Coeff of Yoselin 18 H (11.0-15.0) % Plt Count 234 (150-400) K/uL MPV 9.20 (7.40-12.00) fL Neut % (Auto) 49.1 (48.0-80.0) % Lymph % (Auto) 38.3 (16.0-40.0) % [place] % (Auto) 11.1 (0.0-15.0) % Eos % (Auto) 1.3 (0.0-7.0) % Baso % (Auto) 0.2 (0.0-1.5) % Neut # (Auto) 2.6 (1.4-5.7) K/uL Lymph # (Auto) 2.0 (0.6-2.4) K/uL [place] # (Auto) 0.6 (0.0-0.8) K/uL Eos # (Auto) 0.1 (0.0-0.7) K/uL Baso # (Auto) 0.0 (0.0-0.1) K/uL Nucleated RBC % 0.0 /100WBC Nucleated RBCs # 0 K/uL Sodium 139 (136-145) mmol/L Potassium 3.5 (3.5-5.1) mmol/L Chloride 106 (98-107) mmol/L Carbon Dioxide 23.8 (21.0-32.0) mmol/L BUN 10 (7.0-18.0) mg/dL Creatinine 0.8 (0.6-1.0) mg/dL Est Cr Clr Drug Dosing 44.63 mL/min Estimated GFR (MDRD) > 60.0 ml/min Glucose 77 (74-106) mg/dL Calcium 8.5 (8.5-10.1) mg/dL Phosphorus (2.6-4.7) mg/dL Magnesium 2.1 H (1.5-2.0) mg/dL Total Bilirubin (0.2-1.0) mg/dL AST (15-37) IU/L ALT (14-63) IU/L Alkaline Phosphatase (46-116) U/L Troponin I (0.000-0.056) ng/mL Total Protein (6.4-8.2) g/dL Albumin (3.4-5.0) g/dL Globulin (2.0-3.5) g/dL Albumin/Globulin Ratio (1.3-2.8) 05/13/17 05/13/17 05/13/17 Range/Units 12:45 12:45 12:45 WBC 10.65 (4.0-11.0) K/uL RBC 4.13 L (4.30-5.90) M/uL Hgb 11.8 L (12.0-16.0) g/dL Hct 35.2 L (36.0-46.0) % MCV 85.2 (80.0-98.0) fL MCH 28.6 (27.0-32.0) pg MCHC 33.5 (31.0-37.0) g/dL RDW Std Deviation 55.5 (28.0-62.0) fl RDW Coeff of Yoselin 18 H (11.0-15.0) % Plt Count 296 (150-400) K/uL MPV 9.50 (7.40-12.00) fL Neut % (Auto) 42.7 L (48.0-80.0) % Lymph % (Auto) 47.6 H (16.0-40.0) % [place] % (Auto) 8.1 (0.0-15.0) % Eos % (Auto) 1.5 (0.0-7.0) % Baso % (Auto) 0.1 (0.0-1.5) % Neut # (Auto) 4.6 (1.4-5.7) K/uL Lymph # (Auto) 5.1 H (0.6-2.4) K/uL [place] # (Auto) 0.9 H (0.0-0.8) K/uL Eos # (Auto) 0.2 (0.0-0.7) K/uL Baso # (Auto) 0.0 (0.0-0.1) K/uL Nucleated RBC % 0.0 /100WBC Nucleated RBCs # 0 K/uL Sodium 137 (136-145) mmol/L Potassium 3.8 (3.5-5.1) mmol/L Chloride 103 (98-107) mmol/L Carbon Dioxide 19.7 L (21.0-32.0) mmol/L BUN 10 (7.0-18.0) mg/dL Creatinine 1.0 (0.6-1.0) mg/dL Est Cr Clr Drug Dosing 35.70 mL/min Estimated GFR (MDRD) 52.2 ml/min Glucose 133 H (74-106) mg/dL Calcium 8.7 (8.5-10.1) mg/dL Phosphorus 2.9 (2.6-4.7) mg/dL Magnesium 1.6 (1.5-2.0) mg/dL Total Bilirubin 0.8 (0.2-1.0) mg/dL AST 40 H (15-37) IU/L ALT 17 (14-63) IU/L Alkaline Phosphatase 173 H (46-116) U/L Troponin I < 0.050 (0.000-0.056) ng/mL Total Protein 6.0 L (6.4-8.2) g/dL Albumin 2.6 L (3.4-5.0) g/dL Globulin 3.4 (2.0-3.5) g/dL Albumin/Globulin Ratio 0.8 L (1.3-2.8) Med Orders - Current: Current Medications Acetaminophen (Tylenol) 650 mg PO Q4H PRN PRN Reason: Pain (Mild 1-3)/fever Hydrocodone Bitart/Acetaminophen ([place] 325-5 Mg) 1 tab PO Q4H PRN PRN Reason: Pain (moderate 4-6) Last Admin: 05/13/17 11:35 Dose: 1 tab Atorvastatin Calcium (Lipitor) 10 mg PO DAILY [facility] Last Admin: 05/13/17 14:29 Dose: 10 mg Donepezil HCl (Aricept) 10 mg PO BEDTIME [facility] Ceftriaxone Sodium/Dextrose 1 (gm/ Premix) 50 mls @ 100 mls/hr IV Q24H [facility] Last Admin: 05/13/17 11:37 Dose: 100 mls/hr Levetiracetam (Keppra) 1,000 mg PO DAILY [facility] Last Admin: 05/13/17 14:28 Dose: 1,000 mg Levothyroxine Sodium (Synthroid) 50 mcg PO DAILY [facility] Last Admin: 05/13/17 14:29 Dose: 50 mcg Metoprolol Tartrate (Lopressor) 25 mg PO BID [facility] Morphine Sulfate (Morphine) 2 mg IVPUSH Q2H PRN PRN Reason: Pain (severe 7-10) Last Admin: 05/13/17 00:24 Dose: 2 mg Ondansetron HCl (Zofran Odt) 4 mg PO Q4H PRN PRN Reason: nausea, able to take PO Ondansetron HCl (Zofran) 4 mg IVPUSH Q4H PRN PRN Reason: Nausea Pantoprazole Sodium (Protonix) 40 mg PO DAILY [facility] Quinapril HCl (Accupril) 40 mg PO DAILY [facility] Last Admin: 05/13/17 14:29 Dose: 40 mg Sodium Chloride (Saline Flush) 10 ml FLUSH ASDIRECTED PRN PRN Reason: Keep Vein Open Sodium Chloride (Saline Flush) 2.5 ml FLUSH ASDIRECTED PRN PRN Reason: Keep Vein Open Discontinued Medications Ceftriaxone Sodium/Dextrose 1 (gm/ Premix) 50 mls @ 100 mls/hr IV ONETIME ONE Stop: 05/12/17 12:27 Last Admin: 05/12/17 12:25 Dose: 100 mls/hr Magnesium Sulfate 4 gm/ Premix 100 mls @ 50 mls/hr IV ONETIME STA Stop: 05/13/17 01:53 Last Admin: 05/13/17 00:29 Dose: 50 mls/hr Lidocaine HCl (Xylocaine 1%) 20 ml INJECT ONETIME ONE Stop: 05/12/17 12:42 Last Admin: 05/12/17 12:58 Dose: 20 ml Lidocaine/Tetracaine (Let Soln) 1 ml TOP ONETIME ONE Stop: 05/12/17 11:57 Last Admin: 05/12/17 12:25 Dose: 1 ml Lorazepam (Ativan) 0.5 mg IVPUSH ONETIME ONE Stop: 05/12/17 12:17 Last Admin: 05/12/17 12:24 Dose: 0.5 mg Morphine Sulfate (Morphine) 1 mg IM ONETIME ONE Stop: 05/12/17 10:52 Last Admin: 05/12/17 11:24 Dose: 1 mg Morphine Sulfate (Morphine) 1 mg IVPUSH ONETIME ONE Stop: 05/12/17 12:42 Last Admin: 05/12/17 12:58 Dose: 1 mg Potassium Chloride (Klor-Con M20) 40 meq PO ONETIME ONE Stop: 05/12/17 15:02 Last Admin: 05/12/17 16:40 Dose: 40 meq Quinapril HCl (Accupril) 40 mg PO DAILY [facility] Last Admin: 05/13/17 14:37 Dose: Not Given - Exam Quality Assessment: Supplemental Oxygen General: Other (On initial exam patient was alert and oriented, however on reassessment during rapid response patient was having tonic-clonic seizures.) Lungs: Clear to Auscultation, Decreased Breath Sounds, Wheezing Cardiovascular: Tachycardia GI/Abdominal Exam: Normal Bowel Sounds - Problem List Review Problem List Initiated/Reviewed/Updated: Yes - My Orders Last 24 Hours: My Active Orders 05/13/17 12:54 KEPPRA [REF] Routine - Plan Plan:: 87-year-old admitted fall with multiple fractures and suspected UTI with past medical history of dementia, CABG 3, CAD. Multiple fractures: Patient has a nondisplaced nasal bone fracture as well as evidence of compression fractures of T12, L2, and S2. RR nonoperable and nondisplaced. Will use IV morphine for pain control and transition oral as tolerated. Elevated troponin: Troponin was elevated which may be secondary to trauma however patient does have a significant cardiac history. I have discussed this with family and they report that they would not like any interventions even this was cardiac in origin. Will trend troponins and place on telemetry. Suspected UTI: We'll treat with Rocephin and weight for culture results to narrow antibiotic coverage. Update 05/13/2017 -She had an acute tonic-clonic seizure in the mid morning, patient was stabilized, secondary troponin was assessed along with EKG which did not show any acute cardiac ischemia. Well assessment Level in the a.m. to see whether the patient is subtherapeutic from a Keppra standpoint. [place] group home placement ready by . VTE: SCD, no pharm secondary to risk of fall. Dispo:3-4 days Patient will need placement most likely in [place] after recovery.
--- NOTE | 2017-05-13 16:46 | CT ---
EXAM DATE: 05/12/17 PATIENT'S AGE: 87 Patient: ZEENAT MCFADDEN Facility: [place], [place] Site . Site : 1930 Study: CT Head [id number]/18/2018 11:30:35 AM Ordering Physician: Doctor Rosario Final Report: INDICATION: Fall today, nasal area edema TECHNIQUE: Noncontrast scans obtained from the foramen magnum through the vertex. COMPARISON: None. FINDINGS: 1. Moderate generalized cerebral and cerebellar atrophy. No evidence for intracranial hemorrhage, edema or midline shift. No mass or cortical infarct. 2. Skull is negative for fractures. Subtle deformity of the nasal bones consistent with nondisplaced fractures. IMPRESSION: No acute intracranial abnormality. Nondisplaced nasal bone fractures. Dictated by Reggie Pepper MD @ 05/12/2017 11:45:46 AM Dictated by: Reggie Pepper MD @ 05/12/2017 11:45:54 (Electronic Signature) Report Signed by Proxy. [facility]
--- NOTE | 2017-05-13 16:47 | CT ---
EXAM DATE: 05/12/17 PATIENT'S AGE: 87 Patient: ZEENAT MCFADDEN Facility: [place], [place] Site . Site : 1930 Study: CT Facial [id number]/18/2018 11:30:55 AM Ordering Physician: Doctor Rosario Final Report: INDICATION: Fall today, nasal area edema TECHNIQUE: Noncontrast scans obtained through the facial bones. COMPARISON: None. FINDINGS: 1. Patient motion degrades some of the images. 2. Slight deformity at the tip of the nasal bones. 1 mm of depression of the nasal bone tip to the left of midline as seen on sagittal image 44. Nasal septum is midline. 3. The other facial bones are intact. 4. 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 5. Paranasal sinuses are clear. 6. No acute orbital abnormalities. 7. Soft tissue swelling along the left upper lip. IMPRESSION: Minimally depressed fracture involving the tip the nasal bones. Facial bone CT is otherwise negative for fractures. Dictated by Reggie Pepper MD @ 05/12/2017 11:51:06 AM Dictated by: Reggie Pepper MD @ 05/12/2017 11:51:49 (Electronic Signature) Report Signed by Proxy. [facility]
--- NOTE | 2017-05-13 16:49 | CT ---
EXAM DATE: 05/12/17 PATIENT'S AGE: 87 Patient: ZEENAT MCFADDEN Facility: [place], [place] Site . Site : 1930 Study: CT Spine Cervical [id number]/18/2018 11:31:19 AM Ordering Physician: Doctor Rosario Final Report: INDICATION: Fall today, nasal area edema TECHNIQUE: Helical non contrast scans obtained through the cervical spine. COMPARISON: None. FINDINGS: No fractures or subluxations. Mild marginal spurring at C4-5 and C5-6. There is resultant mild right-sided neural foraminal narrowing at C4-5 and bilateral neural foraminal narrowing at C5-6 which is moderate on the right and milder on the left. No central stenosis. IMPRESSION: Changes of cervical spondylosis. No acute cervical spine injury. Dictated by Reggie Pepper MD @ 05/12/2017 11:55:12 AM Dictated by: Reggie Pepper MD @ 05/12/2017 11:55:29 (Electronic Signature) Report Signed by Proxy. [facility]
--- NOTE | 2017-05-13 16:52 | CT ---
EXAM DATE: 05/12/17 PATIENT'S AGE: 87 Patient: ZEENAT MCFADDEN Facility: [place], [place] Site . Site : 1930 Study: CT Abdomen/Pelvis [id number]/18/2018 11:31:53 AM Ordering Physician: Doctor Rosario Final Report: INDICATION: Fall today, nasal area edema TECHNIQUE: Helical noncontrast scans obtained through the abdomen and pelvis. COMPARISON: Chest CT 02/24/2017. FINDINGS: 1. There is a very large hiatal hernia containing the entire stomach and a portion of the transverse colon. Associated mild atelectasis at both lung bases. Previous sternotomy. Small left pleural effusion. 2. 7 cm right renal cyst. No hydronephrosis or urinary tract calculi. Bladder is normal. 3. Liver, spleen, pancreas and adrenals are normal. 4. Tiny stones in the gallbladder. 5. Postoperative changes involving the right colon. Extensive diverticulosis in the left colon. 6. Uterus and adnexal regions within normal limits. 7. Arterial calcification and ectasia involving the aorta and iliac arteries. 8. There is an acute compression of T12 with approximately 50 percent loss of the vertebral height. Minimal retropulsion of the posterior aspect of T12 into the spinal canal without significant narrowing of the canal. 9. There is also a mild compression of the L2 superior endplate of indeterminate age. Moderate degenerative spurring in the lumbar facet joints. 10. At the S2 level, there is a nondisplaced sacral fracture. IMPRESSION: 1. 50 percent compression of T12 and a nondisplaced fracture of at the of the sacrum at the S2 level, both of which are acute. 2. Mild compression of the superior endplate of L2 of indeterminate age. 3. Variety of other incidental findings mentioned above. Dictated by Reggie Pepper MD @ 05/12/2017 12:08:00 PM Dictated by: Reggie Pepper MD @ 05/12/2017 12:08:08 (Electronic Signature) Report Signed by Proxy. [facility]
--- NOTE | 2017-05-13 16:53 | CT ---
EXAM DATE: 05/12/17 PATIENT'S AGE: 87 Patient: ZEENAT MCFADDEN Facility: [place], [place] Site . Site : 1930 Study: CT Spine Thoracic [id number]/18/2018 11:32:30 AM Ordering Physician: Doctor Rosario Final Report: INDICATION: Fall today, nasal area edema TECHNIQUE: Helical noncontrast scans obtained through the thoracic spine. COMPARISON: None. FINDINGS: 1. There is a an acute compression fracture at the T12 level with approximately 50 percent compression. 3 mm retropulsion of the posterior aspect of T12 vertebral body into the spinal canal without significant stenosis or cord compression. Posterior arch at T12 remains intact. 2. Incidental calcification within the intervertebral disc at T11-12. Benign vertebral hemangioma at the T11 level. 3. Remainder of the thoracic spine is negative for fractures. 4. As noted on CT the abdomen, there is a large hiatal hernia containing the entire stomach and a portion of the colon. Atelectasis at both lung bases and trace left pleural fluid. IMPRESSION: 50 percent compression of T12 which is acute. No evidence for significant associated narrowing of the spinal canal. Dictated by Reggie Pepper MD @ 05/12/2017 12:13:43 PM Dictated by: Reggie Pepper MD @ 05/12/2017 12:13:48 (Electronic Signature) Report Signed by Proxy. [facility]
[2017-05-13] MEDS: Metoprolol Tartrate 25 MG Tab PO SCH (21:35)
[2017-05-13] MEDS: Donepezil 5 MG Tab PO SCH (21:36)
[2017-05-14] MEDS: Acetaminophen/HYDROcodone 325-5 MG Tab PO PRN ×2 (05:05→09:08)
[2017-05-14 05:57] LABS: CHLORIDE,CL 105 mmol/L (98-107); SODIUM,NA 139 mmol/L (136-145)
[2017-05-14] MEDS: Metoprolol Tartrate 25 MG Tab PO SCH ×2 (09:09→21:58)
[2017-05-14] MEDS: levETIRAcetam 500 MG Tab PO SCH (09:09)
[2017-05-14] MEDS: atorvaSTATin 10 MG Tab PO SCH (09:09)
[2017-05-14] MEDS: Levothyroxine 50 MCG Tab PO SCH (09:09)
[2017-05-14] MEDS: Pantoprazole 40 MG Tab.CR PO SCH (09:09)
[2017-05-14] MEDS: cefTRIAXone 1 GM in Premix Bag 1 BAG IV SCH (11:26)
--- NOTE | 2017-05-14 16:50 | PCM.SN ---
- Free Text/Narrative Note: Nursing called into room, son had concerns of patient being ocnfused and talking oddly. I was asked to assess patient. Patient is alert, not oriented to place or time. Unable to fully follow commands or is slow to respond to commands. Talking in gibberish, correct sentence structure, but inappropriate words. No strength deficits noted. Pupils reactive and equal. VS Stable. No seizure activity noted during assessment. Son very concerned of potential seizure looming, but unsure of how they present, since they have not been present when they occur. Notified Dr Cervantes and will order stat head CT for now. Nursing to call him with results and discuss at that time with family possibility of MRI.
[2017-05-14] MEDS ORDERED: LORazepam 2 MG/ML SDV IVPUSH PRN (18:15)
--- NOTE | 2017-05-14 18:25 | PCM.PN ---
- General Info Date of Service: 05/14/17 Subjective Update: Patient's altered mental status has improved significantly since yesterday. Patient still is a little confused but seemed appropriate when assessed this morning. No Further seizure activity appreciated over night or this morning. - Patient Data Vitals - Most Recent: Last Vital Signs Temp 36.2 C 05/14/17 16:00 Pulse 76 05/14/17 16:00 Resp 18 05/14/17 16:00 BP 150/69 H 05/14/17 16:00 Pulse Ox 93 L 05/14/17 16:00 Weight - Most Recent: 65.771 kg I&O - Last 24 Hours: Intake & Output 05/14/17 05/14/17 05/14/17 06:59 14:59 22:59 Intake Total 350 341 Output Total 450 750 Balance -100 -409 Lab Results Last 24 Hours: Laboratory Results - last 24 hr 05/14/17 05/14/17 Range/Units 05:15 05:15 WBC 5.37 (4.0-11.0) K/uL RBC 3.98 L (4.30-5.90) M/uL Hgb 11.1 L (12.0-16.0) g/dL Hct 33.7 L (36.0-46.0) % MCV 84.7 (80.0-98.0) fL MCH 27.9 (27.0-32.0) pg MCHC 32.9 (31.0-37.0) g/dL RDW Std Deviation 55.0 (28.0-62.0) fl RDW Coeff of Yoselin 18 H (11.0-15.0) % Plt Count 258 (150-400) K/uL MPV 9.20 (7.40-12.00) fL Neut % (Auto) 64.3 (48.0-80.0) % Lymph % (Auto) 22.5 (16.0-40.0) % [place] % (Auto) 11.9 (0.0-15.0) % Eos % (Auto) 1.3 (0.0-7.0) % Baso % (Auto) 0.0 (0.0-1.5) % Neut # (Auto) 3.5 (1.4-5.7) K/uL Lymph # (Auto) 1.2 (0.6-2.4) K/uL [place] # (Auto) 0.6 (0.0-0.8) K/uL Eos # (Auto) 0.1 (0.0-0.7) K/uL Baso # (Auto) 0.0 (0.0-0.1) K/uL Nucleated RBC % 0.0 /100WBC Nucleated RBCs # 0 K/uL Sodium 139 (136-145) mmol/L Potassium 3.5 (3.5-5.1) mmol/L Chloride 105 (98-107) mmol/L Carbon Dioxide 25.8 (21.0-32.0) mmol/L BUN 11 (7.0-18.0) mg/dL Creatinine 0.8 (0.6-1.0) mg/dL Est Cr Clr Drug Dosing 44.63 mL/min Estimated GFR (MDRD) > 60.0 ml/min Glucose 87 (74-106) mg/dL Calcium 8.6 (8.5-10.1) mg/dL Med Orders - Current: Current Medications Acetaminophen (Tylenol) 650 mg PO Q4H PRN PRN Reason: Pain (Mild 1-3)/fever Hydrocodone Bitart/Acetaminophen ([place] 325-5 Mg) 1 tab PO Q4H PRN PRN Reason: Pain (moderate 4-6) Last Admin: 05/14/17 09:08 Dose: 1 tab Atorvastatin Calcium (Lipitor) 10 mg PO DAILY [facility] Last Admin: 05/14/17 09:09 Dose: 10 mg Donepezil HCl (Aricept) 10 mg PO BEDTIME [facility] Last Admin: 05/13/17 21:36 Dose: 10 mg Ceftriaxone Sodium/Dextrose 1 (gm/ Premix) 50 mls @ 100 mls/hr IV Q24H [facility] Last Admin: 05/14/17 11:26 Dose: 100 mls/hr Levetiracetam (Keppra) 1,000 mg PO DAILY [facility] Last Admin: 05/14/17 09:09 Dose: 1,000 mg Levothyroxine Sodium (Synthroid) 50 mcg PO DAILY [facility] Last Admin: 05/14/17 09:09 Dose: 50 mcg Lorazepam (Ativan) 0 mg IV Q4H PRN PRN Reason: Seizures Metoprolol Tartrate (Lopressor) 25 mg PO BID [facility] Last Admin: 05/14/17 09:09 Dose: 25 mg Morphine Sulfate (Morphine) 2 mg IVPUSH Q2H PRN PRN Reason: Pain (severe 7-10) Last Admin: 05/13/17 00:24 Dose: 2 mg Ondansetron HCl (Zofran Odt) 4 mg PO Q4H PRN PRN Reason: nausea, able to take PO Ondansetron HCl (Zofran) 4 mg IVPUSH Q4H PRN PRN Reason: Nausea Pantoprazole Sodium (Protonix) 40 mg PO DAILY [facility] Last Admin: 05/14/17 09:09 Dose: 40 mg Quinapril HCl (Accupril) 40 mg PO DAILY [facility] Last Admin: 05/14/17 09:09 Dose: 40 mg Sodium Chloride (Saline Flush) 10 ml FLUSH ASDIRECTED PRN PRN Reason: Keep Vein Open Sodium Chloride (Saline Flush) 2.5 ml FLUSH ASDIRECTED PRN PRN Reason: Keep Vein Open Discontinued Medications Ceftriaxone Sodium/Dextrose 1 (gm/ Premix) 50 mls @ 100 mls/hr IV ONETIME ONE Stop: 05/12/17 12:27 Last Admin: 05/12/17 12:25 Dose: 100 mls/hr Magnesium Sulfate 4 gm/ Premix 100 mls @ 50 mls/hr IV ONETIME STA Stop: 05/13/17 01:53 Last Admin: 05/13/17 00:29 Dose: 50 mls/hr Lidocaine HCl (Xylocaine 1%) 20 ml INJECT ONETIME ONE Stop: 05/12/17 12:42 Last Admin: 05/12/17 12:58 Dose: 20 ml Lidocaine/Tetracaine (Let Soln) 1 ml TOP ONETIME ONE Stop: 05/12/17 11:57 Last Admin: 05/12/17 12:25 Dose: 1 ml Lorazepam (Ativan) 0.5 mg IVPUSH ONETIME ONE Stop: 05/12/17 12:17 Last Admin: 05/12/17 12:24 Dose: 0.5 mg Morphine Sulfate (Morphine) 1 mg IM ONETIME ONE Stop: 05/12/17 10:52 Last Admin: 05/12/17 11:24 Dose: 1 mg Morphine Sulfate (Morphine) 1 mg IVPUSH ONETIME ONE Stop: 05/12/17 12:42 Last Admin: 05/12/17 12:58 Dose: 1 mg Potassium Chloride (Klor-Con M20) 40 meq PO ONETIME ONE Stop: 05/12/17 15:02 Last Admin: 05/12/17 16:40 Dose: 40 meq Quinapril HCl (Accupril) 40 mg PO DAILY [facility] Last Admin: 05/13/17 14:37 Dose: Not Given - Exam General: Alert, Cooperative, No Acute Distress HEENT: Other (Multiple ecchymoses throughout the face secondary to fall sustained prior to admission) Lungs: Clear to Auscultation, Normal Respiratory Effort Cardiovascular: Regular Rate GI/Abdominal Exam: Normal Bowel Sounds - Problem List Review Problem List Initiated/Reviewed/Updated: Yes - My Orders Last 24 Hours: My Active Orders 05/14/17 18:15 LORazepam [Ativan] See Dose Instructions IV Q4H PRN - Plan Plan:: 87-year-old admitted fall with multiple fractures and suspected UTI with past medical history of dementia, CABG 3, CAD. Multiple fractures: Patient has a nondisplaced nasal bone fracture as well as evidence of compression fractures of T12, L2, and S2. RR nonoperable and nondisplaced. Will use IV morphine for pain control and transition oral as tolerated. Elevated troponin: Troponin was elevated which may be secondary to trauma however patient does have a significant cardiac history. I have discussed this with family and they report that they would not like any interventions even this was cardiac in origin. Will trend troponins and place on telemetry. Suspected UTI: We'll treat with Rocephin and weight for culture results to narrow antibiotic coverage. Update 05/13/2017 -She had an acute tonic-clonic seizure in the mid morning, patient was stabilized, secondary troponin was assessed along with EKG which did not show any acute cardiac ischemia. Well assessment Level in the a.m. to see whether the patient is subtherapeutic from a Keppra standpoint. [facility] home placement ready by . Update 05/14/2017 -Continue to monitor the patient or possible seizure activity. Awaiting disposition to [facility] on Saturday. VTE: SCD, no pharm secondary to risk of fall. Dispo:3-4 days Patient will need placement most likely in [place] after recovery.
[2017-05-14] MEDS: Donepezil 5 MG Tab PO SCH (22:06)
[2017-05-15 06:10] LABS: CHLORIDE,CL 105 mmol/L (98-107); SODIUM,NA 140 mmol/L (136-145)
[2017-05-15] MEDS: levETIRAcetam 500 MG Tab PO SCH ×2 (09:00→20:58)
[2017-05-15] MEDS: Pantoprazole 40 MG Tab.CR PO SCH (09:00)
[2017-05-15] MEDS: Metoprolol Tartrate 25 MG Tab PO SCH ×2 (09:00→20:58)
[2017-05-15] MEDS: atorvaSTATin 10 MG Tab PO SCH (09:00)
[2017-05-15] MEDS: Levothyroxine 50 MCG Tab PO SCH (09:01)
[2017-05-15] MEDS: Acetaminophen 325 MG Tab PO PRN ×2 (09:41→18:29)
[2017-05-15] MEDS ORDERED: Potassium Chloride 20 MEQ Tab.ER PO ONE (09:49)
--- NOTE | 2017-05-15 10:31 | CT ---
EXAM DATE: 05/12/17 PATIENT'S AGE: 87 Patient: ZEENAT MCFADDEN Facility: [place], [place] Site . Site : 1930 Study: CT Head [id number]/20/2018 5:36:40 PM Ordering Physician: Billy Johnson Final Report: INDICATION: Aphasia TECHNIQUE: CT head without contrast. COMPARISON: May 12, 2017 FINDINGS: CSF spaces: Within normal limits for age. Brain parenchyma: The clark-white differentiation is normal. No sign of mass, hemorrhage, or midline shift. Skull base and calvarium: The visualized paranasal sinuses and mastoid air cells demonstrate no acute or significant findings. The visualized orbits are grossly unremarkable. No skull fractures. IMPRESSION: Unremarkable noncontrast head CT. No sign of CVA or other significant finding. No change from the prior exam. Dictated by Santi Loja MD @ 05/14/2017 6:31:29 PM Please note that all CT scans at this facility use dose modulation, iterative reconstruction, and/or weight-based dosing when appropriate to reduce radiation dose to as low as reasonably achievable. Dictated by: Santi Loja MD @ 05/14/2017 18:31:35 (Electronic Signature) Report Signed by Proxy. [facility]
--- NOTE | 2017-05-15 11:19 | PCM.PN ---
- General Info Date of Service: 05/15/17 Subjective Update: Patient continues to have these episodic seizure episodes. She had one right when we were conducting our rounds. It only lasted a few moments, we have decided to increase the patient's Keppra. Aside from these episodic seizure episodes patient overall is stable and is quite pleasant to speak with. - Review of Systems General: Reports: Weakness, Fatigue - Patient Data Vitals - Most Recent: Last Vital Signs Temp 36.7 C 05/15/17 07:53 Pulse 82 05/15/17 09:00 Resp 18 05/15/17 07:53 BP 136/83 05/15/17 09:00 Pulse Ox 95 05/15/17 07:53 Weight - Most Recent: 65.771 kg I&O - Last 24 Hours: Intake & Output 05/14/17 05/15/17 05/15/17 22:59 06:59 14:59 Intake Total 341 300 Output Total 750 500 Balance -409 -200 Lab Results Last 24 Hours: Laboratory Results - last 24 hr 05/15/17 05/15/17 Range/Units 05:11 05:11 WBC 6.74 (4.0-11.0) K/uL RBC 4.06 L (4.30-5.90) M/uL Hgb 11.4 L (12.0-16.0) g/dL Hct 34.6 L (36.0-46.0) % MCV 85.2 (80.0-98.0) fL MCH 28.1 (27.0-32.0) pg MCHC 32.9 (31.0-37.0) g/dL RDW Std Deviation 55.5 (28.0-62.0) fl RDW Coeff of Yoselin 18 H (11.0-15.0) % Plt Count 278 (150-400) K/uL MPV 9.30 (7.40-12.00) fL Neut % (Auto) 72.3 (48.0-80.0) % Lymph % (Auto) 17.2 (16.0-40.0) % [place] % (Auto) 9.8 (0.0-15.0) % Eos % (Auto) 0.6 (0.0-7.0) % Baso % (Auto) 0.1 (0.0-1.5) % Neut # (Auto) 4.9 (1.4-5.7) K/uL Lymph # (Auto) 1.2 (0.6-2.4) K/uL [place] # (Auto) 0.7 (0.0-0.8) K/uL Eos # (Auto) 0.0 (0.0-0.7) K/uL Baso # (Auto) 0.0 (0.0-0.1) K/uL Nucleated RBC % 0.0 /100WBC Nucleated RBCs # 0 K/uL Sodium 140 (136-145) mmol/L Potassium 3.3 L (3.5-5.1) mmol/L Chloride 105 (98-107) mmol/L Carbon Dioxide 25.1 (21.0-32.0) mmol/L BUN 8 (7.0-18.0) mg/dL Creatinine 0.8 (0.6-1.0) mg/dL Est Cr Clr Drug Dosing 44.63 mL/min Estimated GFR (MDRD) > 60.0 ml/min Glucose 89 (74-106) mg/dL Calcium 8.5 (8.5-10.1) mg/dL Med Orders - Current: Current Medications Acetaminophen (Tylenol) 650 mg PO Q4H PRN PRN Reason: Pain (Mild 1-3)/fever Last Admin: 05/15/17 09:41 Dose: 650 mg Hydrocodone Bitart/Acetaminophen ([place] 325-5 Mg) 1 tab PO Q4H PRN PRN Reason: Pain (moderate 4-6) Last Admin: 05/14/17 09:08 Dose: 1 tab Atorvastatin Calcium (Lipitor) 10 mg PO DAILY [facility] Last Admin: 05/15/17 09:00 Dose: 10 mg Donepezil HCl (Aricept) 10 mg PO BEDTIME [facility] Last Admin: 05/14/17 22:06 Dose: 10 mg Ceftriaxone Sodium/Dextrose 1 (gm/ Premix) 50 mls @ 100 mls/hr IV Q24H [facility] Last Admin: 05/14/17 11:26 Dose: 100 mls/hr Levetiracetam (Keppra) 1,000 mg PO BID [facility] Levothyroxine Sodium (Synthroid) 50 mcg PO DAILY [facility] Last Admin: 05/15/17 09:01 Dose: 50 mcg Lorazepam (Ativan) 0 mg IVPUSH Q4H PRN PRN Reason: Seizures Metoprolol Tartrate (Lopressor) 25 mg PO BID [facility] Last Admin: 05/15/17 09:00 Dose: 25 mg Morphine Sulfate (Morphine) 2 mg IVPUSH Q2H PRN PRN Reason: Pain (severe 7-10) Last Admin: 05/13/17 00:24 Dose: 2 mg Ondansetron HCl (Zofran Odt) 4 mg PO Q4H PRN PRN Reason: nausea, able to take PO Ondansetron HCl (Zofran) 4 mg IVPUSH Q4H PRN PRN Reason: Nausea Pantoprazole Sodium (Protonix) 40 mg PO DAILY [facility] Last Admin: 05/15/17 09:00 Dose: 40 mg Quinapril HCl (Accupril) 40 mg PO DAILY [facility] Last Admin: 05/15/17 08:59 Dose: 40 mg Sodium Chloride (Saline Flush) 10 ml FLUSH ASDIRECTED PRN PRN Reason: Keep Vein Open Sodium Chloride (Saline Flush) 2.5 ml FLUSH ASDIRECTED PRN PRN Reason: Keep Vein Open Discontinued Medications Ceftriaxone Sodium/Dextrose 1 (gm/ Premix) 50 mls @ 100 mls/hr IV ONETIME ONE Stop: 05/12/17 12:27 Last Admin: 05/12/17 12:25 Dose: 100 mls/hr Magnesium Sulfate 4 gm/ Premix 100 mls @ 50 mls/hr IV ONETIME [facility] Stop: 05/13/17 01:53 Last Admin: 05/13/17 00:29 Dose: 50 mls/hr Levetiracetam (Keppra) 1,000 mg PO DAILY [facility] Last Admin: 05/15/17 09:00 Dose: 1,000 mg Lidocaine HCl (Xylocaine 1%) 20 ml INJECT ONETIME ONE Stop: 05/12/17 12:42 Last Admin: 05/12/17 12:58 Dose: 20 ml Lidocaine/Tetracaine (Let Soln) 1 ml TOP ONETIME ONE Stop: 05/12/17 11:57 Last Admin: 05/12/17 12:25 Dose: 1 ml Lorazepam (Ativan) 0.5 mg IVPUSH ONETIME ONE Stop: 05/12/17 12:17 Last Admin: 05/12/17 12:24 Dose: 0.5 mg Morphine Sulfate (Morphine) 1 mg IM ONETIME ONE Stop: 05/12/17 10:52 Last Admin: 05/12/17 11:24 Dose: 1 mg Morphine Sulfate (Morphine) 1 mg IVPUSH ONETIME ONE Stop: 05/12/17 12:42 Last Admin: 05/12/17 12:58 Dose: 1 mg Potassium Chloride (Klor-Con M20) 40 meq PO ONETIME ONE Stop: 05/12/17 15:02 Last Admin: 05/12/17 16:40 Dose: 40 meq Potassium Chloride (Klor-Con M20) 40 meq PO ONETIME ONE Stop: 05/15/17 09:50 Last Admin: 05/15/17 10:22 Dose: 40 meq Quinapril HCl (Accupril) 40 mg PO DAILY [facility] Last Admin: 05/13/17 14:37 Dose: Not Given - Exam General: Alert, Oriented, Cooperative Lungs: Clear to Auscultation, Normal Respiratory Effort Cardiovascular: Regular Rate, Regular Rhythm Back Exam: Paraspinal Tenderness Extremities: Leg Pain - Problem List Review Problem List Initiated/Reviewed/Updated: Yes - My Orders Last 24 Hours: My Active Orders 05/14/17 18:15 LORazepam [Ativan] See Dose Instructions IVPUSH Q4H PRN - Plan Plan:: 87-year-old admitted fall with multiple fractures and suspected UTI with past medical history of dementia, CABG 3, CAD. Multiple fractures: Patient has a nondisplaced nasal bone fracture as well as evidence of compression fractures of T12, L2, and S2. RR nonoperable and nondisplaced. Will use IV morphine for pain control and transition oral as tolerated. Elevated troponin: Troponin was elevated which may be secondary to trauma however patient does have a significant cardiac history. I have discussed this with family and they report that they would not like any interventions even this was cardiac in origin. Will trend troponins and place on telemetry. Suspected UTI: We'll treat with Rocephin and weight for culture results to narrow antibiotic coverage. Update 05/13/2017 -She had an acute tonic-clonic seizure in the mid morning, patient was stabilized, secondary troponin was assessed along with EKG which did not show any acute cardiac ischemia. Well assessment Level in the a.m. to see whether the patient is subtherapeutic from a Keppra standpoint. [place] [facility] placement ready by . Update 05/15/2017 -Continue to monitor the patient or possible seizure activity. We have increased the patient's Keppra dose to 1000 mg twice a day. Patient Genoptic ointment [place] today as we want to ensure that the seizures are under better control prior to discharge.. VTE: SCD, no pharm secondary to risk of fall. Dispo:3-4 days Patient will need placement most likely in [place] after recovery.
[2017-05-15] MEDS: cefTRIAXone 1 GM in Premix Bag 1 BAG IV SCH (11:44)
[2017-05-15] MEDS ORDERED: LORazepam 2 MG/ML SDV IVPUSH ONE (19:05)
[2017-05-15] MEDS: Donepezil 5 MG Tab PO SCH (20:59)
[2017-05-16 05:49] LABS: CHLORIDE,CL 107 mmol/L (98-107); SODIUM,NA 141 mmol/L (136-145)
[2017-05-16] MEDS: levETIRAcetam 500 MG Tab PO SCH ×2 (10:21→21:48)
[2017-05-16] MEDS: atorvaSTATin 10 MG Tab PO SCH (10:22)
[2017-05-16] MEDS: Metoprolol Tartrate 25 MG Tab PO SCH ×2 (10:23→21:48)
[2017-05-16] MEDS: Levothyroxine 50 MCG Tab PO SCH (10:24)
[2017-05-16] MEDS: Pantoprazole 40 MG Tab.CR PO SCH (10:24)
[2017-05-16] MEDS: Acetaminophen 325 MG Tab PO PRN ×2 (10:28→14:36)
--- NOTE | 2017-05-16 10:59 | MR ---
EXAM DATE: 05/12/17 PATIENT'S AGE: 87 Patient: ZEENAT MCFADDEN Facility: [place], [place] Site . Site : [id number] Study: MRI Head W/ and W/O Cont [id number] 8:48:56 PM Ordering Physician: Billy Johnson Final Report: INDICATION: Seizures. TECHNIQUE: Multiplanar multisequence MR images were obtained through the brain prior to and following administration of intravenous contrast. COMPARISON: CT brain 05/14/2017. FINDINGS: There is prominence of the ventricles and sulci compatible with mild to moderate diffuse cerebral volume loss. No mass effect or midline shift. Small scattered foci of T2 FLAIR hyperintensity in the supratentorial white matter of the cerebral hemispheres are nonspecific, though favored to represent sequelae of mild chronic microvascular ischemic disease. No intracranial hemorrhage or pathologic extra-axial fluid collection. No areas of diffusion restriction identified to suggest acute infarction. Artifact degrades image quality on postcontrast images. Within this limitation, no pathologic intracranial enhancement. Incidentally noted partially empty sella. The major arterial flow voids of the skullbase are preserved. The globes are symmetric in size. Minimal mucosal thickening in the ethmoid air cells. Trace fluid in the right mastoid air cells. IMPRESSION: 1. No acute infarction, mass effect, or intracranial hemorrhage. 2. No abnormal intracranial enhancement within the limitations of artifact. 3. [id number] diffuse cerebral volume loss. 4. Mild chronic microvascular ischemic disease. Dictated by Jose Hicks MD @ May 16 2017 8:12AM (Electronic Signature) Report Signed by Proxy. REBECA
[2017-05-16] MEDS ORDERED: levETIRAcetam 500 MG Tab PO SCH (13:00)
[2017-05-16] MEDS: cefTRIAXone 1 GM in Premix Bag 1 BAG IV SCH (13:46)
[2017-05-16] MEDS ORDERED: Morphine 4 MG/ML Syringe IVPUSH PRN (15:18)
--- NOTE | 2017-05-16 20:17 | PCM.PN ---
- General Info Date of Service: 05/16/17 Subjective Update: Patient stable when assessing her in the morning. She did have a seizure overnight once again. She'll be speaking with neurology in regards to patient's Keppra dosage. - Patient Data Vitals - Most Recent: Last Vital Signs Temp 36.1 C 05/16/17 16:00 Pulse 78 05/16/17 16:00 Resp 20 05/16/17 16:00 BP 110/53 L 05/16/17 16:00 Pulse Ox 97 05/16/17 16:00 Weight - Most Recent: 65.771 kg I&O - Last 24 Hours: Intake & Output 05/16/17 05/16/17 05/16/17 06:59 14:59 22:59 Intake Total 350 480 Output Total 400 Balance -50 480 Lab Results Last 24 Hours: Laboratory Results - last 24 hr 05/13/17 05/16/17 05/16/17 Range/Units 16:45 05:06 05:06 WBC 5.45 (4.0-11.0) K/uL RBC 3.76 L (4.30-5.90) M/uL Hgb 10.7 L (12.0-16.0) g/dL Hct 32.2 L (36.0-46.0) % MCV 85.6 (80.0-98.0) fL MCH 28.5 (27.0-32.0) pg MCHC 33.2 (31.0-37.0) g/dL RDW Std Deviation 56.7 (28.0-62.0) fl RDW Coeff of Yoselin 18 H (11.0-15.0) % Plt Count 236 (150-400) K/uL MPV 9.10 (7.40-12.00) fL Neut % (Auto) 48.6 (48.0-80.0) % Lymph % (Auto) 35.4 (16.0-40.0) % [place] % (Auto) 13.0 (0.0-15.0) % Eos % (Auto) 2.8 (0.0-7.0) % Baso % (Auto) 0.2 (0.0-1.5) % Neut # (Auto) 2.7 (1.4-5.7) K/uL Lymph # (Auto) 1.9 (0.6-2.4) K/uL [place] # (Auto) 0.7 (0.0-0.8) K/uL Eos # (Auto) 0.2 (0.0-0.7) K/uL Baso # (Auto) 0.0 (0.0-0.1) K/uL Nucleated RBC % 0.0 /100WBC Nucleated RBCs # 0 K/uL Sodium 141 (136-145) mmol/L Potassium 3.4 L (3.5-5.1) mmol/L Chloride 107 (98-107) mmol/L Carbon Dioxide 28.5 (21.0-32.0) mmol/L BUN 10 (7.0-18.0) mg/dL Creatinine 0.8 (0.6-1.0) mg/dL Est Cr Clr Drug Dosing 44.63 mL/min Estimated GFR (MDRD) > 60.0 ml/min Glucose 76 (74-106) mg/dL Calcium 8.5 (8.5-10.1) mg/dL Levetiracetam 13 (5-30) ug/mL Med Orders - Current: Current Medications Acetaminophen (Tylenol) 650 mg PO Q4H PRN PRN Reason: Pain (Mild 1-3)/fever Last Admin: 05/16/17 14:36 Dose: 650 mg Hydrocodone Bitart/Acetaminophen ([place] 325-5 Mg) 1 tab PO Q4H PRN PRN Reason: Pain (moderate 4-6) Last Admin: 05/14/17 09:08 Dose: 1 tab Atorvastatin Calcium (Lipitor) 10 mg PO DAILY [facility] Last Admin: 05/16/17 10:22 Dose: 10 mg Donepezil HCl (Aricept) 10 mg PO BEDTIME [facility] Last Admin: 05/15/17 20:59 Dose: 10 mg Ceftriaxone Sodium/Dextrose 1 (gm/ Premix) 50 mls @ 100 mls/hr IV Q24H [facility] Last Admin: 05/16/17 13:46 Dose: 100 mls/hr Levetiracetam (Keppra) 1,500 mg PO BID [facility] Levothyroxine Sodium (Synthroid) 50 mcg PO DAILY [facility] Last Admin: 05/16/17 10:24 Dose: 50 mcg Lorazepam (Ativan) 0 mg IVPUSH Q4H PRN PRN Reason: Seizures Metoprolol Tartrate (Lopressor) 25 mg PO BID [facility] Last Admin: 05/16/17 10:23 Dose: 25 mg Morphine Sulfate (Morphine) 2 mg IVPUSH Q2H PRN PRN Reason: Pain (severe 7-10) Ondansetron HCl (Zofran Odt) 4 mg PO Q4H PRN PRN Reason: nausea, able to take PO Ondansetron HCl (Zofran) 4 mg IVPUSH Q4H PRN PRN Reason: Nausea Pantoprazole Sodium (Protonix) 40 mg PO DAILY [facility] Last Admin: 05/16/17 10:24 Dose: 40 mg Quinapril HCl (Accupril) 40 mg PO DAILY [facility] Last Admin: 05/16/17 10:05 Dose: 40 mg Sodium Chloride (Saline Flush) 10 ml FLUSH ASDIRECTED PRN PRN Reason: Keep Vein Open Sodium Chloride (Saline Flush) 2.5 ml FLUSH ASDIRECTED PRN PRN Reason: Keep Vein Open Discontinued Medications Ceftriaxone Sodium/Dextrose 1 (gm/ Premix) 50 mls @ 100 mls/hr IV ONETIME ONE Stop: 05/12/17 12:27 Last Admin: 05/12/17 12:25 Dose: 100 mls/hr Magnesium Sulfate 4 gm/ Premix 100 mls @ 50 mls/hr IV ONETIME STA Stop: 05/13/17 01:53 Last Admin: 05/13/17 00:29 Dose: 50 mls/hr Levetiracetam (Keppra) 1,000 mg PO DAILY [facility] Last Admin: 05/15/17 09:00 Dose: 1,000 mg Levetiracetam (Keppra) 1,000 mg PO BID [facility] Last Admin: 05/16/17 10:21 Dose: 1,000 mg Levetiracetam (Keppra) 500 mg PO 05/16/17@1300 [facility] Stop: 05/16/17 13:01 Last Admin: 05/16/17 13:49 Dose: 500 mg Lidocaine HCl (Xylocaine 1%) 20 ml INJECT ONETIME ONE Stop: 05/12/17 12:42 Last Admin: 05/12/17 12:58 Dose: 20 ml Lidocaine/Tetracaine (Let Soln) 1 ml TOP ONETIME ONE Stop: 05/12/17 11:57 Last Admin: 05/12/17 12:25 Dose: 1 ml Lorazepam (Ativan) 0.5 mg IVPUSH ONETIME ONE Stop: 05/12/17 12:17 Last Admin: 05/12/17 12:24 Dose: 0.5 mg Lorazepam (Ativan) 0.5 mg IVPUSH ONETIME ONE Stop: 05/15/17 19:06 Last Admin: 05/15/17 19:20 Dose: 0.5 mg Morphine Sulfate (Morphine) 1 mg IM ONETIME ONE Stop: 05/12/17 10:52 Last Admin: 05/12/17 11:24 Dose: 1 mg Morphine Sulfate (Morphine) 1 mg IVPUSH ONETIME ONE Stop: 05/12/17 12:42 Last Admin: 05/12/17 12:58 Dose: 1 mg Morphine Sulfate (Morphine) 2 mg IVPUSH Q2H PRN PRN Reason: Pain (severe 7-10) Last Admin: 05/13/17 00:24 Dose: 2 mg Potassium Chloride (Klor-Con M20) 40 meq PO ONETIME ONE Stop: 05/12/17 15:02 Last Admin: 05/12/17 16:40 Dose: 40 meq Potassium Chloride (Klor-Con M20) 40 meq PO ONETIME ONE Stop: 05/15/17 09:50 Last Admin: 05/15/17 10:22 Dose: 40 meq Quinapril HCl (Accupril) 40 mg PO DAILY [facility] Last Admin: 05/13/17 14:37 Dose: Not Given - Exam Quality Assessment: Supplemental Oxygen General: Alert, Cooperative Lungs: Clear to Auscultation, Decreased Breath Sounds Cardiovascular: Regular Rate, Regular Rhythm GI/Abdominal Exam: Normal Bowel Sounds Extremities: Normal Inspection - Problem List Review Problem List Initiated/Reviewed/Updated: Yes - My Orders Last 24 Hours: My Active Orders 05/16/17 21:00 levETIRAcetam [Keppra] 1,500 mg PO BID - Plan Plan:: 87-year-old admitted fall with multiple fractures and suspected UTI with past medical history of dementia, CABG 3, CAD. Multiple fractures: Patient has a nondisplaced nasal bone fracture as well as evidence of compression fractures of T12, L2, and S2. RR nonoperable and nondisplaced. Will use IV morphine for pain control and transition oral as tolerated. Elevated troponin: Troponin was elevated which may be secondary to trauma however patient does have a significant cardiac history. I have discussed this with family and they report that they would not like any interventions even this was cardiac in origin. Will trend troponins and place on telemetry. Suspected UTI: We'll treat with Rocephin and weight for culture results to narrow antibiotic coverage. Update 05/13/2017 -She had an acute tonic-clonic seizure in the mid morning, patient was stabilized, secondary troponin was assessed along with EKG which did not show any acute cardiac ischemia. Well assessment Level in the a.m. to see whether the patient is subtherapeutic from a Keppra standpoint. [facility] home placement ready by . Update 05/15/2017 -Continue to monitor the patient or possible seizure activity. We have increased the patient's Keppra dose to 1000 mg twice a day. Patient Genoptic ointment [place] today as we want to ensure that the seizures are under better control prior to discharge.. VTE: SCD, no pharm secondary to risk of fall. Update 05/16/2017 -Spoke with Dr. Pina and after explaining the patient's recent seizure activities and ongoing seizure problems Dr. Pina has stated that we can increase the dose of her Keppra to 1500 mg twice a day. And reassess to see if seizure activity does stop. Dispo:3-4 days Patient will need placement most likely in [place] after recovery.
[2017-05-16] MEDS: Donepezil 5 MG Tab PO SCH (21:49)
[2017-05-17] MEDS: Pantoprazole 40 MG Tab.CR PO SCH (08:28)
[2017-05-17] MEDS: levETIRAcetam 500 MG Tab PO SCH (08:28)
[2017-05-17] MEDS: Levothyroxine 50 MCG Tab PO SCH (08:29)
[2017-05-17] MEDS: Metoprolol Tartrate 25 MG Tab PO SCH (08:29)
[2017-05-17] MEDS: atorvaSTATin 10 MG Tab PO SCH (08:29)
[2017-05-17 10:46] LABS: CHLORIDE,CL 107 mmol/L (98-107); SODIUM,NA 141 mmol/L (136-145)
[2017-05-17] MEDS: cefTRIAXone 1 GM in Premix Bag 1 BAG IV SCH (11:44)
--- NOTE | 2017-05-17 21:17 | PCM.DCSUM1 ---
<Jordon Stiles Z - Last Filed: 05/19/17 15:35> Discharge Summary - Hospital Course HPI Initial Comments: Discharge Summary Date of admission: 05/12/2017 Date of discharge: 05/17/2017 Admitting diagnosis: #1. Multiple fractures secondary to fall #2. Elevated troponins with significant past medical history of cardiovascular disease including MD with family not wanting to transfer secondary patient DNR/ DNI #3. Suspected urinary tract infection #4. Past medical history of seizure activity on Keppra #5. Medical history of dementia Discharge diagnoses: #1. Recent fall history now suspicious of uncontrolled seizure activity secondary to ineffectiveness of patient's antiseizure medication #2. Seizures under control over the past 24 hours #3. Significant medical history of cardiovascular disease including MD with recent elevation of troponins now trending downwards #4. suspected urinary tract infection based on urinalysis #5. Consultations: None Procedures: None Hospitalization course: Patient was admitted secondary to a fall which the patient sustained and her [facility] house room. Patient was found noted to have a bloody face, however CT did not show any acute brain bleed, there was a fracture noted of the patient's nose, including other multiple fractures. Patient was initially noted to have an elevated troponin level and the initial suspicion during the initial admission into the hospital was that patient may have suffered an acute MD event, after speaking with family family had decided not to transfer the patient since she is DNR/DNI. Patient was also noted to have a mildly dirty urine which coverage was given via IV Levaquin and Rocephin. Patient was stabilized throughout this process however on 05/14/2017 during rounds in the morning patient had a rapid response called and when I entered the patient's room the patient was noted to having a seizure which was tonic-clonic in nature. Patient had been receiving her Keppra dose of 8000 mg daily, a Keppra trough was sent out. Patient had stabilized acutely from that seizure however throughout the next day the patient was noted to have 2 more episodes of seizure activity, patient's Keppra dose was increased to 2000 mg daily yet once again from 321 03/30/21 the patient did have one more episode of his seizure. Afterwards a phone consultation was made to Dr. Pina whom stated that since the MRI and the CT did not show any acute findings and despite what the Keppra tropes which show as a head yet to come back we can still increase the patient's Keppra dose to 1500 twice a day for a total of 3000 mg daily. Patient was given this dose and was noted to not have any further seizures for the next 24 hours. Patient family had decided to move the patient over to [facility] for more advanced care, and patient was transferred on 05/17/2017.. Disposition on discharge: [facility] Condition on discharge: Stable Discharge medications: Continuation of home medication with an increase to the patient's Keppra level from 1000 mg daily to a total of 3000 mg daily. Follow-up instructions: Patient to follow-up with Dr. Wheeler , follow-up with Dr. Pina - Discharge Data Discharge Date: 05/17/17 Discharge Disposition: DC/Tfer to [facility] 61 Condition: Stable - Patient Summary/Data Consults: Consultations 05/12/17 14:55 PT Evaluation and Treatment [CONS] Routine - Patient Instructions Diet: Usual Diet as Tolerated Activity: As Tolerated Driving: Do Not Drive Showering/Bathing: May Shower Notify Provider of: Fever, Increased Pain, Swelling and Redness, Nausea and/or Vomiting - Discharge Plan Prescriptions/Med Rec: Acetaminophen/HYDROcodone [[place] 325-5 MG] 1 tab PO Q4H PRN 7 Days #30 tablet PRN Reason: Pain (Moderate 4-6) levETIRAcetam [Keppra] 1,500 mg PO BID 7 Days #42 tab Home Medications: Home Meds Acetaminophen [Tylenol] 2 tab PO TID 05/12/17 [History] Acetaminophen/oxyCODONE [Percocet 325-5 MG] 1 tab PO Q4HR PRN 05/12/17 [History] Alum Hydrox/Mag Hydrox/Simeth [Maalox Advanced] 1 - 2 tbsp PO QID PRN 05/12/17 [ History] Bisacodyl [Dulcolax] 1 supp RECTAL DAILY PRN 05/12/17 [History] Calcitonin (Tru[place]) [Miacalcin Nasal Gray] 1 spray NASBOTH DAILY 05/12/17 [ History] Donepezil [Aricept] 10 mg PO BEDTIME 05/12/17 [History] Guiatussin 1 tsp PO Q4H PRN 05/12/17 [History] Levothyroxine [Synthroid] 50 mcg PO DAILY 05/12/17 [History] Loperamide [Imodium] 1 cap PO ASDIRECTED PRN 05/12/17 [History] Meloxicam 7.5 mg PO DAILY 05/12/17 [History] Metoprolol Tartrate 25 mg PO BID 05/12/17 [History] PARoxetine [Paxil] 20 mg PO DAILY 05/12/17 [History] Pantoprazole [ProTONIX] 40 mg PO DAILY 05/12/17 [History] Polyvinyl Alcohol [Artificial Tears] 1 drop EYEBOTH QID PRN 05/12/17 [History] Quinapril [Accupril] 40 mg PO DAILY 05/12/17 [History] atorvaSTATin [Lipitor] 10 mg PO DAILY 05/12/17 [History] Multivitamin [Daily Multiple Vitamin] 1 tab PO DAILY 05/14/17 [History] Acetaminophen/HYDROcodone [[place] 325-5 MG] 1 tab PO Q4H PRN 7 Days #30 tablet [Rx] levETIRAcetam [Keppra] 1,500 mg PO BID 7 Days #42 tab 05/17/17 [Rx] Patient Handouts: Acetaminophen; Hydrocodone tablets or capsules, Head Injury, Adult, Levetiracetam tablets, Urinary Tract Infection, Adult Referrals: Devora Pina MD [Physician] - 05/27/17 1:30 pm Champ Wheeler MD [Physician] - 05/23/17 (Follow-up on next [facility] rounds) - Patient Data Vitals - Most Recent: Last Vital Signs Temp 36.4 C 05/17/17 11:39 Pulse 70 05/17/17 11:39 Resp 18 05/17/17 11:39 BP 137/60 05/17/17 11:39 Pulse Ox 96 05/17/17 13:00 Weight - Most Recent: 65.771 kg I&O - Last 24 hours: Intake & Output 05/17/17 05/17/17 05/17/17 06:59 14:59 22:59 Intake Total 300 Output Total 600 Balance -300 Lab Results - Last 24 hrs: Laboratory Results - last 24 hr 05/17/17 Range/Units 10:06 Sodium 141 (136-145) mmol/L Potassium 4.0 (3.5-5.1) mmol/L Chloride 107 (98-107) mmol/L Carbon Dioxide 27.4 (21.0-32.0) mmol/L BUN 13 (7.0-18.0) mg/dL Creatinine 0.8 (0.6-1.0) mg/dL Est Cr Clr Drug Dosing 44.63 mL/min Estimated GFR (MDRD) > 60.0 ml/min Glucose 82 (74-106) mg/dL Calcium 8.2 L (8.5-10.1) mg/dL Total Bilirubin 0.6 (0.2-1.0) mg/dL AST 25 (15-37) IU/L ALT 15 (14-63) IU/L Alkaline Phosphatase 195 H (46-116) U/L Total Protein 5.2 L (6.4-8.2) g/dL Albumin 2.2 L (3.4-5.0) g/dL Globulin 3.0 (2.0-3.5) g/dL Albumin/Globulin Ratio 0.7 L (1.3-2.8) Med Orders - Current: Current Medications Discontinued Medications Acetaminophen (Tylenol) 650 mg PO Q4H PRN PRN Reason: Pain (Mild 1-3)/fever Last Admin: 05/16/17 14:36 Dose: 650 mg Hydrocodone Bitart/Acetaminophen ([place] 325-5 Mg) 1 tab PO Q4H PRN PRN Reason: Pain (moderate 4-6) Last Admin: 05/14/17 09:08 Dose: 1 tab Atorvastatin Calcium (Lipitor) 10 mg PO DAILY [facility] Last Admin: 05/17/17 08:29 Dose: 10 mg Donepezil HCl (Aricept) 10 mg PO BEDTIME [facility] Last Admin: 05/16/17 21:49 Dose: 10 mg Ceftriaxone Sodium/Dextrose 1 (gm/ Premix) 50 mls @ 100 mls/hr IV ONETIME ONE Stop: 05/12/17 12:27 Last Admin: 05/12/17 12:25 Dose: 100 mls/hr Ceftriaxone Sodium/Dextrose 1 (gm/ Premix) 50 mls @ 100 mls/hr IV Q24H [facility] Last Admin: 05/17/17 11:44 Dose: 100 mls/hr Magnesium Sulfate 4 gm/ Premix 100 mls @ 50 mls/hr IV ONETIME STA Stop: 05/13/17 01:53 Last Admin: 05/13/17 00:29 Dose: 50 mls/hr Levetiracetam (Keppra) 1,000 mg PO DAILY [facility] Last Admin: 05/15/17 09:00 Dose: 1,000 mg Levetiracetam (Keppra) 1,000 mg PO BID [facility] Last Admin: 05/16/17 10:21 Dose: 1,000 mg Levetiracetam (Keppra) 1,500 mg PO BID [facility] Last Admin: 05/17/17 08:28 Dose: 1,500 mg Levetiracetam (Keppra) 500 mg PO 05/16/17@1300 [facility] Stop: 05/16/17 13:01 Last Admin: 05/16/17 13:49 Dose: 500 mg Levothyroxine Sodium (Synthroid) 50 mcg PO DAILY [facility] Last Admin: 05/17/17 08:29 Dose: 50 mcg Lidocaine HCl (Xylocaine 1%) 20 ml INJECT ONETIME ONE Stop: 05/12/17 12:42 Last Admin: 05/12/17 12:58 Dose: 20 ml Lidocaine/Tetracaine (Let Soln) 1 ml TOP ONETIME ONE Stop: 05/12/17 11:57 Last Admin: 05/12/17 12:25 Dose: 1 ml Lorazepam (Ativan) 0.5 mg IVPUSH ONETIME ONE Stop: 05/12/17 12:17 Last Admin: 05/12/17 12:24 Dose: 0.5 mg Lorazepam (Ativan) 0 mg IVPUSH Q4H PRN PRN Reason: Seizures Lorazepam (Ativan) 0.5 mg IVPUSH ONETIME ONE Stop: 05/15/17 19:06 Last Admin: 05/15/17 19:20 Dose: 0.5 mg Metoprolol Tartrate (Lopressor) 25 mg PO BID [facility] Last Admin: 05/17/17 08:29 Dose: 25 mg Morphine Sulfate (Morphine) 1 mg IM ONETIME ONE Stop: 05/12/17 10:52 Last Admin: 05/12/17 11:24 Dose: 1 mg Morphine Sulfate (Morphine) 1 mg IVPUSH ONETIME ONE Stop: 05/12/17 12:42 Last Admin: 05/12/17 12:58 Dose: 1 mg Morphine Sulfate (Morphine) 2 mg IVPUSH Q2H PRN PRN Reason: Pain (severe 7-10) Last Admin: 05/13/17 00:24 Dose: 2 mg Morphine Sulfate (Morphine) 2 mg IVPUSH Q2H PRN PRN Reason: Pain (severe 7-10) Ondansetron HCl (Zofran Odt) 4 mg PO Q4H PRN PRN Reason: nausea, able to take PO Ondansetron HCl (Zofran) 4 mg IVPUSH Q4H PRN PRN Reason: Nausea Pantoprazole Sodium (Protonix) 40 mg PO DAILY [facility] Last Admin: 05/17/17 08:28 Dose: 40 mg Potassium Chloride (Klor-Con M20) 40 meq PO ONETIME ONE Stop: 05/12/17 15:02 Last Admin: 05/12/17 16:40 Dose: 40 meq Potassium Chloride (Klor-Con M20) 40 meq PO ONETIME ONE Stop: 05/15/17 09:50 Last Admin: 05/15/17 10:22 Dose: 40 meq Quinapril HCl (Accupril) 40 mg PO DAILY [facility] Last Admin: 05/13/17 14:37 Dose: Not Given Quinapril HCl (Accupril) 40 mg PO DAILY [facility] Last Admin: 05/17/17 08:28 Dose: 40 mg Sodium Chloride (Saline Flush) 10 ml FLUSH ASDIRECTED PRN PRN Reason: Keep Vein Open Sodium Chloride (Saline Flush) 2.5 ml FLUSH ASDIRECTED PRN PRN Reason: Keep Vein Open <Steven Cunningham - Last Filed: 05/22/17 19:46> Discharge Summary - Patient Summary/Data Consults: Consultations 05/12/17 14:55 PT Evaluation and Treatment [CONS] Routine - Patient Data Vitals - Most Recent: Last Vital Signs Temp 36.4 C 05/17/17 11:39 Pulse 70 05/17/17 11:39 Resp 18 05/17/17 11:39 BP 137/60 05/17/17 11:39 Pulse Ox 96 05/17/17 13:00 Med Orders - Current: Current Medications Discontinued Medications Acetaminophen (Tylenol) 650 mg PO Q4H PRN PRN Reason: Pain (Mild 1-3)/fever Last Admin: 05/16/17 14:36 Dose: 650 mg Hydrocodone Bitart/Acetaminophen ([place] 325-5 Mg) 1 tab PO Q4H PRN PRN Reason: Pain (moderate 4-6) Last Admin: 05/14/17 09:08 Dose: 1 tab Atorvastatin Calcium (Lipitor) 10 mg PO DAILY [facility] Last Admin: 05/17/17 08:29 Dose: 10 mg Donepezil HCl (Aricept) 10 mg PO BEDTIME [facility] Last Admin: 05/16/17 21:49 Dose: 10 mg Ceftriaxone Sodium/Dextrose 1 (gm/ Premix) 50 mls @ 100 mls/hr IV ONETIME ONE Stop: 05/12/17 12:27 Last Admin: 05/12/17 12:25 Dose: 100 mls/hr Ceftriaxone Sodium/Dextrose 1 (gm/ Premix) 50 mls @ 100 mls/hr IV Q24H [facility] Last Admin: 05/17/17 11:44 Dose: 100 mls/hr Magnesium Sulfate 4 gm/ Premix 100 mls @ 50 mls/hr IV ONETIME STA Stop: 05/13/17 01:53 Last Admin: 05/13/17 00:29 Dose: 50 mls/hr Levetiracetam (Keppra) 1,000 mg PO DAILY [facility] Last Admin: 05/15/17 09:00 Dose: 1,000 mg Levetiracetam (Keppra) 1,000 mg PO BID [facility] Last Admin: 05/16/17 10:21 Dose: 1,000 mg Levetiracetam (Keppra) 1,500 mg PO BID [facility] Last Admin: 05/17/17 08:28 Dose: 1,500 mg Levetiracetam (Keppra) 500 mg PO 05/16/17@1300 [facility] Stop: 05/16/17 13:01 Last Admin: 05/16/17 13:49 Dose: 500 mg Levothyroxine Sodium (Synthroid) 50 mcg PO DAILY [facility] Last Admin: 05/17/17 08:29 Dose: 50 mcg Lidocaine HCl (Xylocaine 1%) 20 ml INJECT ONETIME ONE Stop: 05/12/17 12:42 Last Admin: 05/12/17 12:58 Dose: 20 ml Lidocaine/Tetracaine (Let Soln) 1 ml TOP ONETIME ONE Stop: 05/12/17 11:57 Last Admin: 05/12/17 12:25 Dose: 1 ml Lorazepam (Ativan) 0.5 mg IVPUSH ONETIME ONE Stop: 05/12/17 12:17 Last Admin: 05/12/17 12:24 Dose: 0.5 mg Lorazepam (Ativan) 0 mg IVPUSH Q4H PRN PRN Reason: Seizures Lorazepam (Ativan) 0.5 mg IVPUSH ONETIME ONE Stop: 05/15/17 19:06 Last Admin: 05/15/17 19:20 Dose: 0.5 mg Metoprolol Tartrate (Lopressor) 25 mg PO BID [facility] Last Admin: 05/17/17 08:29 Dose: 25 mg Morphine Sulfate (Morphine) 1 mg IM ONETIME ONE Stop: 05/12/17 10:52 Last Admin: 05/12/17 11:24 Dose: 1 mg Morphine Sulfate (Morphine) 1 mg IVPUSH ONETIME ONE Stop: 05/12/17 12:42 Last Admin: 05/12/17 12:58 Dose: 1 mg Morphine Sulfate (Morphine) 2 mg IVPUSH Q2H PRN PRN Reason: Pain (severe 7-10) Last Admin: 05/13/17 00:24 Dose: 2 mg Morphine Sulfate (Morphine) 2 mg IVPUSH Q2H PRN PRN Reason: Pain (severe 7-10) Ondansetron HCl (Zofran Odt) 4 mg PO Q4H PRN PRN Reason: nausea, able to take PO Ondansetron HCl (Zofran) 4 mg IVPUSH Q4H PRN PRN Reason: Nausea Pantoprazole Sodium (Protonix) 40 mg PO DAILY [facility] Last Admin: 05/17/17 08:28 Dose: 40 mg Potassium Chloride (Klor-Con M20) 40 meq PO ONETIME ONE Stop: 05/12/17 15:02 Last Admin: 05/12/17 16:40 Dose: 40 meq Potassium Chloride (Klor-Con M20) 40 meq PO ONETIME ONE Stop: 05/15/17 09:50 Last Admin: 05/15/17 10:22 Dose: 40 meq Quinapril HCl (Accupril) 40 mg PO DAILY [facility] Last Admin: 05/13/17 14:37 Dose: Not Given Quinapril HCl (Accupril) 40 mg PO DAILY [facility] Last Admin: 05/17/17 08:28 Dose: 40 mg Sodium Chloride (Saline Flush) 10 ml FLUSH ASDIRECTED PRN PRN Reason: Keep Vein Open Sodium Chloride (Saline Flush) 2.5 ml FLUSH ASDIRECTED PRN PRN Reason: Keep Vein Open - Free Text/Narrative Note: I have examined the patient. I have discussed findings and treatment plan with the resident. I agree with the assessment and plan outlined in the following resident's note.
== END 2017-05-17 13:15 | DRG 605 ==
LOC: MW.ED 10:17 → MW.MS 13:31 → UNDOADMIN 14:00 → UNDODISIN 05-17 13:15
PROVIDERS: ADMIT Family Medicine; ATTEND Family Medicine
PROC: 0HQ1XZZ Repair Face Skin, External Approach (ICD-10-PCS; principal; 2017-05-12)
PROC: 0HQ1XZZ Repair Face Skin, External Approach (ICD-10-PCS; 2017-05-12)
PROC: 0HQFXZZ Repair Right Hand Skin, External Approach (ICD-10-PCS; 2017-05-12)
PROC: 0HQDXZZ Repair Right Lower Arm Skin, External Approach (ICD-10-PCS; 2017-05-12)
DX: S00.83XA Contusion of other part of head, initial encounter (principal); M47.022 Vertebral artery compression syndromes, cervical region; N39.0 Urinary tract infection, site not specified; Y92.121 Bathroom in nursing home as the place of occurrence of the external cause; S02.2XXB Fracture of nasal bones, initial encounter for open fracture; S22.089A Unspecified fracture of T11-T12 vertebra, initial encounter for closed fracture; S32.10XA Unspecified fracture of sacrum, initial encounter for closed fracture; G40.89 Other seizures; S32.029A Unspecified fracture of second lumbar vertebra, initial encounter for closed fracture; W01.0XXA Fall on same level from slipping, tripping and stumbling without subsequent striking against object, initial encounter; Y93.9 Activity, unspecified; Y92.129 Unspecified place in nursing home as the place of occurrence of the external cause; S01.21XA Laceration without foreign body of nose, initial encounter; S41.111A Laceration without foreign body of right upper arm, initial encounter; S61.411A Laceration without foreign body of right hand, initial encounter; G40.909 Epilepsy, unspecified, not intractable, without status epilepticus; I25.10 Atherosclerotic heart disease of native coronary artery without angina pectoris; E78.00 Pure hypercholesterolemia, unspecified; I10 Essential (primary) hypertension; E03.9 Hypothyroidism, unspecified; G62.9 Polyneuropathy, unspecified; K44.9 Diaphragmatic hernia without obstruction or gangrene; I25.2 Old myocardial infarction; R74.8 Abnormal levels of other serum enzymes; F03.90 Unspecified dementia, unspecified severity, without behavioral disturbance, psychotic disturbance, mood disturbance, and anxiety; Z79.899 Other long term (current) drug therapy; Z66 Do not resuscitate; Z95.1 Presence of aortocoronary bypass graft
CPT/HCPCS: 12002; 12011; 36415; 70450; 70486; 72125; 72128; 74176; 80053; 81001; 84484; 85025; 96365; 96372; 96375; 99285; J0696; J2060; J2270 ×2; 70553; 70553-26; 71045; 71045-26; 80048; 80177; 83735; 84100; 93005; 97110-GP; 97116-GP; 97162-GP; 97530-GP; 99283; A9270-GY; J3475